=== PATIENT | female | born 1995 | race Caucasian/White ===

== ENCOUNTER → 2017-08-23 12:53 | Outpatient (CLI) | payer MEDICAID, SELFPAY ==
--- NOTE | 2017-08-23 12:55 | MRI_ITS ---
STUDY: MRI LUMBAR SPINE WITH AND WITHOUT CONTRAST REASON FOR EXAM: Female, 21 years old. low back pain. 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 TECHNIQUE: Standardized fat and water weighted pulse sequences were obtained in the sagittal and axial planes. 11ml ml of Gadavist contrast material was administered for the contrast portion of the examination. COMPARISON: X-ray July 09, 2017 FINDINGS: Normal lumbar lordosis. There is no substantial scoliosis. Normal conus medullaris that terminates at the T12-L1 level. There is no spondylolisthesis. There is loss of disc height at L5-S1. There is mild chronic compression deformity of the L3 superior endplate. There is fatty replacement of the L2-L4 vertebral bodies probably representing post radiation therapy. No bone marrow edema or enhancement is demonstrated. There is multilevel facet arthropathy and ligamentum flavum hypertrophy. T12/L1: Sagittal images only were obtained. Normal. L1/2: Normal. L2/3: Normal. L3/4: Normal disc. No central canal stenosis. There is moderate right and mild left neuroforaminal stenosis. L4/5: Normal disc. No central canal stenosis. There is mild right worse than left neural foraminal stenosis. L5/S1: There is a diffuse bulge and a central and left paracentral small protrusion with annular tear. There is no central canal or neuroforaminal stenosis. Normal visualized sacral ala. Normal visualized paraspinous soft tissue structures. MRI/Spine Lumbar W/WO Contrast IMPRESSION: Multilevel degenerative changes, as described above. L3/4: There is moderate right and mild left neuroforaminal stenosis. L4/5: There is mild right worse than left neural foraminal stenosis. L5/S1: There is a diffuse bulge and a central and left paracentral small protrusion with annular tear. There is fatty replacement of the L2-L4 vertebral bodies probably representing post radiation therapy. There is mild chronic compression deformity of the L3 superior endplate. Electronically Signed: Ami Tobin MD at 15:27 EST , Service support ,
== END ==
PROVIDERS: Family Provider Pediatrics; PCP Pediatrics
DX: C41.2 Malignant neoplasm of vertebral column (principal)
CPT/HCPCS: 72158; A9585

== ENCOUNTER 2019-06-09 10:40 | Emergency (ER) | payer MEDICAID, SELFPAY ==
[2019-06-09 10:41] VITALS: BP 103/59; PULSE 90; RESP 18; TEMP 36.8; O2SAT 98; BMI 29.6
--- NOTE | 2019-06-09 10:59 | ED.DCSUM_ITS ---
History of Present Illness Chief Complaint: General Illness Informant: Patient Onset: Yesterday Narrative: Patient reports increasing sweating and chills with mild muscle aches and slight headache this morning. was not feeling well yesterday. No sick contacts. No ear or throat pain. No cough. No urinary symptoms. No vomiting or diarrhea. Normal bowel movement this morning when symptoms started. No history of diabetes or asthma. 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 She finished her treatment 2 years ago the age of 21 currently in remission per patient. She was treated at [facility]. has not followed up since then. Denies any fever. has generalized weakness. Prior similar symptoms: No Past Medical History - Allergies and Home Meds Allergies/Adverse Reactions: Allergies No Known Allergies Allergy (Verified 06/09/19 10:41) Primary Care Physician: NOT,DEFINED [NON-STAFF] - Review of Systems General: Reports: Chills, Sweats. Denies: Fever Eyes: Denies: Visual changes - bilaterally, Diplopia ENT: Denies: Rhinorrhea, Sore throat Cardiovascular: Denies: Chest pain, Palpitations Respiratory: Denies: Dyspnea, Cough, Dyspnea on exertion Gastrointestinal: Denies: Abdominal pain, Nausea, Vomiting, Diarrhea, Melena, Hematochezia Genitourinary: Denies: Dysuria, Hematuria, Frequency Musculoskeletal: Denies: Back pain, Extremity Pain Skin: Denies: Rash, Wounds Neurological: Reports: Weakness. Denies: Headache, Numbness Physical Exam Vital Signs/Narrative: Vital Signs Temp Pulse Resp BP Pulse Ox 06/09/19 10:41 98.3 F 90 18 103/59 L 98 Inital Vital Signs reviewed: Yes General: Well nourished, Well developed, No Acute Distress Head: Normocephalic, Atraumatic Eyes: Perrl, EOMI ENT: Moist mucous membranes, No rhinorrhea, TM's clear, - - No posterior pharyngeal erythema. Neck: Supple, Nontender Cardiovascular: Regular rate, Regular rhythm, No murmurs Respiratory: No distress, CTA bilaterally, Chest nontender Abdomen: Soft, Nontender, Nondistended, Normal bowel sounds Back: Nontender, Normal Inspection Extremities: Nontender, No edema Skin: Normal color, No rash Neurological: Alert, Oriented x3, Cranial nerves II-XII grossly intact, Normal Strength, Normal Sensation Psychological: Normal affect, Normal Mood Diagnostic/Tx/Re-eval Abnormal Lab Results 06/09/19 06/09/19 06/09/19 11:50 11:50 14:40 WBC 17.6 H RBC 4.43 Hgb 14.3 Hct 43.9 MCV 99.1 H MCH 32.3 H MCHC 32.6 RDW Std Deviation 47.7 H RDW Coeff of Bulmaro 13.0 Plt Count 182 MPV 9.8 Immature Gran % (Auto) 0.500 Neut % (Auto) 88.2 H Lymph % (Auto) 4.4 L Caldwell % (Auto) 6.7 Eos % (Auto) 0.1 Baso % (Auto) 0.1 Absolute Neuts (auto) 15.5 H Absolute Lymphs (auto) 0.77 L Nucleated RBC % 0 Sodium 137 Potassium 3.6 Chloride 102 Carbon Dioxide 29.0 Anion Gap 6 BUN 8 Creatinine 1.33 H Estim Creat Clear Calc 64.52 Est GFR (MDRD) Af Amer 64 Est GFR (MDRD) Non-Af 53 L BUN/Creatinine Ratio 6.0 L Glucose 100 Calcium 9.0 Urine Color Yellow Urine Clarity Sl. Cloudy Urine pH 7.0 Ur Specific [place] 1.005 Urine Protein 30 H Urine Glucose (UA) 50 H Urine Ketones Negative Urine Occult Blood 250 H Urine Nitrite Negative Urine Bilirubin Negative Urine Urobilinogen Normal Ur Leukocyte Esterase 100 H Urine RBC 25-50 SEEN Urine WBC 10-25 SEEN Ur Squamous Epith Cells 0-5 SEEN Urine Bacteria 0 SEEN Urine Mucus 0 SEEN - Medical Decision Making Patient nontoxic vital signs stable and afebrile in the ED. With patient's frequent history of sarcoma not followed up in 2 years, work-up initiated. Influenza negative labs noted white count of 17. She had no cough however in the department she reports she urinated have blood in her urine. She has no back pain or abdominal pain. Given Tylenol and Motrin for headaches which improved. Urine obtained noted hematuria along with leukocytes and WBCs. With her white count will start antibiotics. She started on Macrobid. She will monitor symptoms, signs and symptoms discussed to return. otherwise patient will follow-up as an outpatient. All questions were answered. ED Disposition - Plan for ED Patient: Disposition: Home or Assisted Living Diagnosis: UTI (urinary tract infection) Instructions: Urinary Tract Infections in Women Prescriptions: Nitrofurantoin Macrocrystals [Macrobid] 100 mg PO Q12 #14 capsule Referrals: NOT,ARCENIO [NON-STAFF] - Loni Hoyos [NON-STAFF] - 5-7 Days Additional Instructions: You should contact your oncologist for your regular follow-ups with your history. Take antibiotic as prescribed.
[2019-06-09] MEDS: Acetaminophen 500 MG Tablet 1000 MG PO (12:11)
[2019-06-09 12:25] LABS: Anion Gap 6 (5-15); BUN 8 mg/dL (7-18); Chloride 102 mmol/L (98-107); Creatinine, Serum 1.33 mg/dL (0.55-1.02); EST Glomerular Filtration Rate 53 mL/min (>60); Est Glom Filt Rate - Afr Amer 64 mL/min (>60); Estimated Creatinine Clearance 64.52 ml/min; Glucose 100 mg/dL (74-106); Potassium 3.6 mmol/L (3.5-5.1); Sodium Level 137 mmol/L (136-145)
[2019-06-09 12:32] LABS: Absolute Lymphocyte Count 0.77 X10^3/uL (0.83-4.51); Absolute Neutrophil Count 15.5 X10^3/uL (2.0-7.7); Basophil# 0.02 X10^3/uL; Basophil% 0.1 % (0-1); Eosinophil# 0.02 X10^3/uL; Eosinophils% 0.1 % (0-5); Hematocrit 43.9 % (37-47); Hemoglobin 14.3 g/dL (12.0-15.0); Lymphocyte # 0.77 X10^3/ul (4.0); Lymphocyte % 4.4 % (19-41); Mean Corp Hgb Conc 32.6 g/dL (32-36); Mean Corpuscular Hgb 32.3 pg (27.0-32.0); Mean Corpuscular Volume 99.1 fL (81-99); Mean Platelet Vol. 9.8 fl (6.2-12.0); Monocyte# 1.17 X10^3/uL; Monocyte% 6.7 % (0-10); NRBC Flagged by Analyzer 0 % (0-5); Neutrophil % 88.2 % (47-70); Platelet Count 182 K/mm3 (150-450); RBC Distribution Width SD 47.7 fl (35.1-43.9); Red Blood Count 4.43 M/mm3 (4.2-5.4); White Blood Count 17.6 K/mm3 (4.4-11.0)
[2019-06-09] MEDS: Ibuprofen 600 MG Tablet PO (14:15)
--- NOTE | 2019-06-09 14:15 | ED.RN ---
PT AWARE DR WOULD LIKE A URINE SAMPLE. EDUCATED ON CONTAMINIATION AND VERIFYING RESULTS. REVIEWED CLEAN CATCH SPECIMEN AND PROPER TECHNIQUE. PT REPORTS UNABLE TO GO AT THIS TIME. OFFERED BEVERAGE, SPRITE GIVEN.
[2019-06-09 14:47] LABS: Bacteria 0 SEEN /hpf (None Seen); Mucous, Urine 0 SEEN /hpf (<or=2+)
[2019-06-09 15:04] VITALS: BP 138/74; PULSE 90; RESP 16; O2SAT 99
[2019-06-09 15:07] LABS: Color, Urine Yellow (Yellow); Glucose, Dipstick 50 mg/dl (Normal); Ketone-Dipstick Negative (Negative); Leukocyte Esterase-Dipstick 100 /ul (Negative); Nitrite-Dipstick Negative (Negative); Occult Blood-Urine 250 /ul (Negative); Protein-Dipstick 30 mg/dl (Negative); Specific Gravity, Urine 1.005 (1.002-1.030); Urine Bilirubin Dipstick Negative (Negative); Urine Clarity Sl. Cloudy (Clear); Urine Urobilinogen Normal (Normal)
[2019-06-09 15:14] LABS: Red Blood Cells-Urine 25-50 SEEN /hpf (0-5); Squamous Epithelial Cells - UA 0-5 SEEN /hpf (5-10); White Blood Cells 10-25 SEEN /hpf (0-5)
[2019-06-09] MEDS: Nitrofurantoin Macrocrystals 100 MG Capsule PO (15:42)
== END 2019-06-09 15:48 | disposition home or self-care (01) ==
PROVIDERS: Emergency Provider Emergency Medicine
DX: N39.0 Urinary tract infection, site not specified (principal)
CPT/HCPCS: 80048; 81001; 85025; 87086; 87088; 87804; 99284; A4216

== ENCOUNTER 2019-08-11 20:45 | Emergency (ER) | payer MEDICAID, SELFPAY ==
[2019-08-11 20:46] VITALS: BP 133/71; PULSE 92; RESP 18; TEMP 36.9; O2SAT 100; BMI 30.1
[2019-08-11 21:23] VITALS: BP 109/60; PULSE 93; RESP 15; O2SAT 100
[2019-08-11 21:58] LABS: Absolute Lymphocyte Count 2.23 X10^3/uL (0.83-4.51); Absolute Neutrophil Count 5.2 X10^3/uL (2.0-7.7); Basophil# 0.02 X10^3/uL; Basophil% 0.2 % (0-1); Eosinophil# 0.08 X10^3/uL; Hematocrit 42.6 % (37-47); Lymphocyte # 2.23 X10^3/ul (4.0); Lymphocyte % 27.1 % (19-41); Mean Corp Hgb Conc 32.9 g/dL (32-36); Mean Corpuscular Hgb 32.3 pg (27.0-32.0); Mean Corpuscular Volume 98.4 fL (81-99); Monocyte# 0.71 X10^3/uL; Monocyte% 8.6 % (0-10); NRBC Flagged by Analyzer 0 % (0-5); Neutrophil # 5.16 X10^3/uL (2.7-7.7); Neutrophil % 62.9 % (47-70); Platelet Count 217 K/mm3 (150-450); RBC Distribution Width CV 12.8 % (11.6-14.6); RBC Distribution Width SD 46.5 fl (35.1-43.9); Red Blood Count 4.33 M/mm3 (4.2-5.4); White Blood Count 8.2 K/mm3 (4.4-11.0)
[2019-08-11] MEDS: Ketorolac 30 MG/ML Syringe IV (22:02)
[2019-08-11] MEDS: 0.9% Normal Saline 1,000 ML 150 ML IV (22:03)
[2019-08-11 22:08] LABS: Internal QC Validated? YES +Cl - CLEAR BKGD; Pregnancy, Serum, hCG Quali. NEGATIVE Negative
[2019-08-11 22:11] LABS: Anion Gap 3 (5-15); BUN 20 mg/dL (7-18); BUN/Creat Ratio 14.3 RATIO (10-20); Calcium,Total 9.1 mg/dL (8.5-10.1); Chloride 107 mmol/L (98-107); EST Glomerular Filtration Rate 50 mL/min (>60); Est Glom Filt Rate - Afr Amer 60 mL/min (>60); Estimated Creatinine Clearance 61.29 ml/min; Glucose 81 mg/dL (74-106); Potassium 3.7 mmol/L (3.5-5.1); Sodium Level 140 mmol/L (136-145)
[2019-08-11 22:11] LABS: Bacteria 0 SEEN /hpf (None Seen); Mucous, Urine 0 SEEN /hpf (<or=2+)
[2019-08-11 22:12] LABS: Color, Urine Yellow (Yellow); Glucose, Dipstick 50 mg/dl (Normal); Ketone-Dipstick Negative (Negative); Leukocyte Esterase-Dipstick 500 /ul (Negative); Nitrite-Dipstick Negative (Negative); Occult Blood-Urine 25 /ul (Negative); Protein-Dipstick 30 mg/dl (Negative); Urine Bilirubin Dipstick Negative (Negative); Urine Clarity Sl. Cloudy (Clear); Urine Urobilinogen Normal (Normal)
[2019-08-11 22:22] LABS: Red Blood Cells-Urine 0-5 SEEN /hpf (0-5); Squamous Epithelial Cells - UA 0-5 SEEN /hpf (5-10); White Blood Cells 10-25 SEEN /hpf (0-5)
--- NOTE | 2019-08-11 22:35 | RAD_ITS ---
STUDY: X-RAY - LUMBAR SPINE REASON FOR EXAM: Female, 23 years old. Neck pain and weakness for 1 month. History of Muse''s sarcoma of the spine. TECHNIQUE: 3 view(s) of the lumbar spine were obtained. COMPARISON: MRI of the lumbar spine, August 23, 2017. Lumbar spine, July 09, 2017 FINDINGS: There is reversal of the normal lumbar lordosis. There is no substantial scoliosis. There is a normal alignment of the vertebrae. Minimal depression of the superior endplate of L3 which is a chronic finding. There is no disc space narrowing and endplate spondylosis There is no evidence of acute fracture or loss of vertebral axial height. The soft tissue structures are unremarkable. RAD/Lumbar Spine 2 or 3 Views IMPRESSION: No acute abnormality or interval change. Electronically Signed: Matt Nava DO at 23:00 EST Tel [phone], Service support ,
--- NOTE | 2019-08-11 23:29 | ED.DCSUM_ITS ---
- ER Visit Summary Date of Service: 08/11/19 Chief Complaint: [Back pain and fatigue] History of Present Illness: The patient is a 23 F [presents to the emergency department with back pain for over a month. Patient describes generalized fatigue and lack of energy. She denies any injury to her back. She is had no fevers. She denies urinary symptoms. Patient tells me she has had a history of Muse sarcoma that she was treated for from - with chemo and radiation. Patient used to see a oncologist at [facility] but has not gone back or had any follow-ups over the last 3 years. Patient needs to get x-rays and MRIs to follow her disease. Patient was told that she was in remission. She denies any weight loss. She denies any paresthesias or weakness in extremities.] Physical Examination: [HEENT-PERRLA, EOMI. Cranial nerves II through XII grossly intact. TMs clear. Mucous membranes moist. No adenopathy. Cardiovascular-regular rate and rhythm without murmur or ectopy Lungs-clear to auscultation, chest wall stable without crepitus or subcu e mphysema Abdomen-normoactive bowel sounds, soft, nontender, no rebound or rigidity, no peritoneal signs. Back exam-patient has some diffuse tenderness over lumbar spine in the midline. There is no erythema or warmth. No ecchymosis or bruising. Patient has negative straight leg raises. Deep tendon reflexes are plus 2 out of 4 bilaterally at the patella and Achilles. Patient has normal 5 extension. Patient has normal sensation to light touch. Extremities-intact ?4, normal range of motion, normal pulses, atraumatic] Test Results: [CBC with differential obtained was normal. Chemistries unremarkable. Urinalysis was positive for 500 leukocyte esterase and 10-25 PVCs. hCG was negative.] X-rays of the lumbar spine obtained were read as normal. Emergency Department Course and Treatment: [Urine culture was sent. Patient was started on Bactrim DS 1 tablet p.o.] Treatment Plan: [Case was discussed with patient and her mother. Patient is currently in the process of establishing with an oncologist here at [place]. Patient understands I cannot obtain an MRI of her back this evening. She may need further work-up if her pain persists. Patient will be given a prescription for Naprosyn, Flexeril, [place], and Bactrim] Disposition: [Discharged home in stable condition. Patient will be given referral to primary care physician emergency response technician for no doc.] Impression: [Back pain UTI] This note was generated with [employer] dictation software. It may contain incorrect words, spelling, and punctuation that were not noted in review of the chart prior to signing ED Disposition - Plan for ED Patient: Referrals: Care Physician,No Primary [Primary Care Provider] -
--- NOTE | 2019-08-11 23:33 | DCINST.ED_ITS ---
ED Disposition - Plan for ED Patient: Instructions: BACK AND NECK PAIN, General, Understanding Urinary Tract Infections (UTIs), WEAKNESS, Unk Cause Prescriptions: Smz/Tmp Ds [Bactrim Ds] 1 tab PO BID #6 tab Prescription Printed cycloBENZAPRine HCl [Flexeril] 10 mg PO TID PRN #20 tab PRN Reason: Muscle Spasm Prescription Printed Naproxen [Naprosyn] 500 mg PO BID PRN #20 tab Prescription Printed Hydrocodone Bitart/Apap 5-325 [[place] 5MG-325MG] 1 tab PO Q4H PRN PRN 2 Days #10 tab PRN Reason: Pain Prescription Printed Referrals: Care Physician,No Primary [Primary Care Provider] - Hannah Woodard MD [STAFF PHYSICIAN] - 3-5 Days
[2019-08-11] MEDS: Smz/Tmp Ds Tablet 1 TABLET PO (23:49)
[2019-08-11 23:51] VITALS: PULSE 89; RESP 16; O2SAT 98
== END 2019-08-11 23:52 | disposition home or self-care (01) ==
LOC: ED 21:48
PROVIDERS: Emergency Provider Emergency Medicine
DX: N39.0 Urinary tract infection, site not specified (principal); M54.5 Low back pain; Z85.830 Personal history of malignant neoplasm of bone
CPT/HCPCS: 72100; 80048; 81001; 84703; 85025; 96361; 96374; 99283; J7030; A4216

== ENCOUNTER → 2019-09-14 | Outpatient (CLI) | payer MEDICAID, SELFPAY ==
[2019-09-02 13:08] VITALS: BMI 22.7
--- NOTE | 2019-09-14 12:03 | CT_ITS ---
STUDY: CT CHEST WITH CONTRAST REASON FOR EXAM: Female, 23 years old. Mid back and chest pain RADIATION DOSAGE (If Supplied By Facility): CTDIvol = ( 11.29 ) mGy, DLP = ( 397.38 ) mGycm TECHNIQUE: Transaxial imaging was performed following intravenous administration of IV 100mL Isovue-300. Multiplanar coronal and sagittal images were reformatted. Individualized dose optimization techniques were used for this CT. COMPARISON: None. FINDINGS: The lungs are normal. There is no demonstrated pleural abnormality. Normal heart and pericardium. Normal mediastinum. Normal hilar regions. Normal enhanced pulmonary arteries. Normal aorta arch and descending thoracic aorta. Normal osseous structures. There is no demonstrated abnormality of the visualized upper abdomen. CT/Chest WITH Contrast IMPRESSION: Normal enhanced CT Chest examination. Electronically Signed: Jim Velasquez MD at 13:02 EST , Service support ,
--- NOTE | 2019-09-14 12:03 | MRI_ITS ---
STUDY: MRI LUMBAR SPINE WITH AND WITHOUT CONTRAST REASON FOR EXAM: Female, 23 years old. The patient presents with a history of Muse''s sarcoma of the L3 vertebra and a history of chemoradiation therapy complaining of back pain. TECHNIQUE: Standardized fat and water weighted pulse sequences were obtained in the sagittal and axial planes. IV Dotarem 17ml contrast material was administered for the contrast portion of the examination COMPARISON: MRI LUMBAR SPINE-August 23, 2017 FINDINGS: Vertebrae, Alignment and Curvature Vertebrae: There is re-demonstration of fatty marrow replacement of the L2, L3 and L4 vertebra most compatible with postradiation changes, unchanged as compared to the prior examination of August 23, 2017. There is mild compression deformity the superior endplate of the L3 vertebra with a Schmorl''s node deformity, unchanged compared the prior examination. Alignment: Normal. Curvature: Normal lordosis. No scoliosis. Thoracic Cord (visualized distal) / Conus Medullaris Normal. Terminates at the at the mid L1 vertebral body level. Disc Space Levels N.B.: Normal level statement indicates: Normal endplates; disc height, signal and morphology; facet joints; central canal, lateral recesses, and intervertebral neuroformina. T12-L1: Normal. (Imaged only in the sagittal plane). L1-L2: Normal. L2-L3: Normal. L3-L4: Normal disc hydration and height. There is mild right-sided osseous foraminal stenosis secondary to facet arthrosis with marginal impingement upon the exiting right L3 nerve root, unchanged as compared to the prior examination. Normal central canal. The left L3-4 intervertebral neural foramina remains patent. L4-L5: Normal central canal. The intervertebral neural foramina remain patent without neural impingement. L5-S1: There is disc desiccation, mild loss of the disc height with a posterior central to left central disc herniation of protrusion type (sagittal T2 series 2, 7; axial T2 series 5, image 3), measuring approximately 4 x 13 mm with an associated annular tear. There is ventral leftward ventral thecal sac flattening. There is no neural impingement. There is mild bilateral facet arthroses. The intervertebral neural foramina remain patent. Sacral Alae: Normal. There is no enhancing abnormality. Retroperitoneum and Paraspinal Structures Kidneys: Non-visualized. Aorta: Normal. Inferior Vena Cava: Normal. Lymph Nodes: None visualized. Muscles (Paraspinal): Normal. MRI/Spine Lumbar W/WO Contrast IMPRESSION: 1. Postradiation changes of fatty marrow replacement of the L2, L3, and L4 vertebra. 2. Remote superior endplate compression deformity with a prominent Schmorl''s node deformity the L3 vertebra. 3. L3-4 moderate right-sided osseous foraminal stenosis with marginal impingement upon the exiting right L3 nerve root. 4. L5-S1 posterior central to left central disc protrusion with an annular tear, producing minimal ventral thecal sac flattening with no neural impingement, with interval stability as compared to the prior examination of August 23, 2017. 5. No demonstrated enhancing abnormality. Electronically Signed: Baldo Mcmahon DO at 15:53 EST Tel , Service support ,
== END | disposition home or self-care (01) ==
LOC: MRI 12:03
PROVIDERS: Referring Provider Internal Medicine Hematology & Oncology; Visit Provider Internal Medicine Hematology & Oncology
DX: C41.9 Malignant neoplasm of bone and articular cartilage, unspecified (principal)
CPT/HCPCS: 71260; 72158; A9575; Q9967; A4216

== ENCOUNTER → 2020-09-05 16:18 | Outpatient (CLI) | payer MEDICAID, SELFPAY ==
[2019-09-14 14:49] VITALS: BMI 22.7
--- NOTE | 2020-09-05 16:19 | MRI_ITS ---
STUDY: MRI LUMBAR SPINE WITH AND WITHOUT CONTRAST REASON FOR EXAM: Female, 24 years old. annual f/u ewings sarcoma, no new complaints TECHNIQUE: Standardized fat and water weighted pulse sequences were obtained in the sagittal and axial planes. iv dotarem 15cc was administered for the contrast portion of the examination. COMPARISON: 09/14/2019 FINDINGS: No evidence for acute fracture. Fatty marrow replacement of the L2-L4 vertebral bodies T12-L1: Normal endplates. Normal disc height, hydration and morphology. Normal bilateral facet joints. Normal central canal and bilateral lateral recesses. Normal bilateral intervertebral neural foramina. Normal lumbar lordosis. There is no substantial scoliosis. Normal conus medullaris that terminates at L1 L1-2: Normal endplates. Normal disc height, hydration and morphology. Normal bilateral facet joints. Normal central canal and bilateral lateral recesses. Normal bilateral intervertebral neural foramina. L2-3: Normal endplates. Normal disc height, hydration and morphology. Normal bilateral facet joints. Normal central canal and bilateral lateral recesses. Normal bilateral intervertebral neural foramina. L3-4: Normal endplates. Normal disc height, hydration and morphology. Normal bilateral facet joints. Normal central canal and bilateral lateral recesses. Normal bilateral intervertebral neural foramina. L4-5: Normal endplates. Normal disc height, hydration and minimal annular bulge.. Mild facet arthropathy.. Normal central canal and bilateral lateral recesses. Normal bilateral intervertebral neural foramina. L5-S1: Normal endplates. Normal disc height, desiccation and small broad-based left paracentral/posterolateral annular tear and disc protrusion. Mild facet arthropathy.. Normal central canal and bilateral lateral recesses. Normal bilateral intervertebral neural foramina. Normal visualized sacral ala. Normal visualized paraspinous soft tissue structures. No enhancing lesions are seen following contrast demonstration No significant change since prior exam. MRI/Spine Lumbar W/WO Contrast IMPRESSION: Minimal annular bulge at L4-5 without spinal stenosis. Small broad-based left paracentral/posterolateral annular tear and disc protrusion at L5-S1 with mild facet arthropathy but no significant spinal stenosis No enhancing lesions following contrast demonstration Electronically Signed: Skyler Rolle MD at 21:47 EST , Service support ,
--- NOTE | 2020-09-05 17:49 | CT_ITS ---
STUDY: CT CHEST WITH CONTRAST REASON FOR EXAM: Female, 24 years old. 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 Individualized dose optimization techniques were used for this CT. COMPARISON: 09/14/2019 FINDINGS: There is no change in a 4 mm noncalcified nodule in the anterior superior segment left lower lobe lungs on image 51 consistent with a noncalcified granuloma. This requires no further follow-up. No new noncalcified nodules or masses. There is no demonstrated pleural abnormality. Normal heart and pericardium. Normal mediastinum. Normal hilar regions. Normal enhanced pulmonary arteries. Normal aorta arch and descending thoracic aorta. Normal osseous structures. There is no demonstrated abnormality of the visualized upper abdomen. CT/Chest WITH Contrast IMPRESSION: No CT evidence metastatic disease. Electronically Signed: Vito Isaac MD at 6:20 EST Tel , Service support ,
== END ==
PROVIDERS: Referring Provider Internal Medicine Hematology & Oncology; Visit Provider Internal Medicine Hematology & Oncology
DX: C41.9 Malignant neoplasm of bone and articular cartilage, unspecified (principal)
CPT/HCPCS: 71260; 72158; A9575; Q9967; A4216

== ENCOUNTER 2021-01-08 23:42 | Emergency (ER) | payer MEDICAID, SELFPAY ==
[2019-09-14 14:49] VITALS: BMI 22.7
[2021-01-08 23:43] VITALS: BP 104/66; PULSE 130; RESP 18; TEMP 36.7; O2SAT 100; BMI 25.7
--- NOTE | 2021-01-08 23:50 | EKG12_ITS ---
Test Reason : DYSRYTHMIA Blood Pressure : / mmHG Vent. Rate : 104 BPM Atrial Rate : 104 BPM P-R Int : 150 ms QRS Dur : 084 ms QT Int : 338 ms P-R-T Axes : 078 092 063 degrees QTc Int : 444 ms Sinus tachycardia Rightward axis Borderline ECG Confirmed by MAANSA SAMANIEGO, RON ([id number]), associate editor ROB MCCARTHY ([id number]) on 01/09/2021 11:24:15 AM Referred By: RADHA Confirmed By:RON GOEL MD
--- NOTE | 2021-01-08 23:51 | EDS_ITS ---
HPI History of Present Illness Chief Complaint: Syncope Informant: patient Onset/Context/Timing Onset: Today Context: Sudden Onset Current Severity: Gone Maximum Severity: Moderate Narrative Narrative: Patient is a 25-year-old female medical history significant for Muse sarcoma that was treated in who is now in remission, who presents to the emergency department after syncopal episode. Patient states she is been feeling lightheaded for the past 2 weeks. She states last week, was getting off of the toilet, she thinks that she had a syncopal episode. She states the same thing happened again tonight. She states she felt mildly nauseated and lightheaded with change in position and then passed out. She states that she has had some diffuse body tingling. Grandmother who is with her states that she is also had about a 90 pound weight loss in the past year secondary to depression. [facility] Medical History (Updated 01/09/21 @ 00:31 by Lara Lepe RN) Depression Muse sarcoma Mental deficiency Weight loss, non-intentional Home Medications potassium chloride 20 meq PO BID #10 tab 01/09/21 [Rx Last Taken Unknown] Allergy/AdvReac Type Severity Reaction Status Date / Time acetaminophen [From Vicodin] AdvReac Nausea Verified 01/08/21 23:46 hydrocodone [From Vicodin] AdvReac Nausea Verified 01/08/21 23:46 Family History Aunt Breast cancer Cancer Mother Ovarian cancer Grandmother Ovarian cancer Surgical History History of hip surgery Social History Smoking Status: Never smoker ROS ROS ED Constitutional Constitutional ED: Reports weight loss; Denies chills or fever(s) Eyes Eyes: Denies blurry vision or change in vision ENT ENT ED: Denies ear pain or sore throat Cardiovascular Cardiovascular: Reports racing heartbeat; Denies chest pain or palpitations Respiratory/Chest Respiratory/Chest: Denies cough, dyspnea or dyspnea on exertion Gastrointestinal Gastrointestinal: Reports nausea; Denies abdominal pain or vomiting Genitourinary Genitourinary ED: Denies dysuria or urinary frequency Musculoskeletal Musculoskeletal: Denies arthralgias or myalgias Integumentary Denies rash Neurologic Neurologic: Denies headache(s) or paresthesias Psychiatric Psychiatric: Denies anxiety or depression Endocrine Endocrinology: Denies polydipsia or polyuria Allergic/Immunologic Allergic/Immunologic ED: Denies urticaria EXAM Physical Exam Const Vital Signs: 01/08/21 23:43 Temperature 98.1 F Temperature Source Temporal Pulse Rate 130 H Respiratory Rate 18 Blood Pressure 104/66 Blood Pressure Mean 78 Pulse Ox 100 Oxygen Delivery Method Room Air Positive well nourished and well developed General Appearance ED: well developed HEENT Reports normocephalic, head/scalp atraumatic and moist mucous membranes Eyes PERRL and EOMs intact bilaterally Neck no lymphadenopathy and supple General: Negative for tenderness Chest Wall inspection of chest normal Resp normal respiratory effort and clear to auscultation bilaterally Cardio regular rate, regular rhythm and no murmurs GI normal to inspection, nondistended, normoactive bowel sounds Palpation: Negative for tender, guarding or rebound tenderness present Back/Spine no CVA tenderness Cervical Spine: Negative for cervical spine tenderness Thoracic Spine / Upper Back: Negative for thoracic spinal tenderness Extremity normal to inspection General Extremety ED: Negative for tenderness Neuro oriented x3 and CN's II-XII intact bilaterally Neuro Narrative: No focal deficits appreciated. Sensorium / Orientation: alert Psych mental status grossly normal Skin no rashes or lesions noted, no wounds and skin turgor normal MDM MDM MDM Narrative Medical decision making narrative: The patient presents after syncopal episode. Clinically, she does look mildly dry. She is also tachycardic. EKG was obtained. EKG demonstrates sinus rhythm, tachycardic rate of 104. There was normal intervals. There was no prolonged QT or WPW. There was no evidence of right heart strain. Patient was given IV fluids. Labs were obtained. She is not significantly anemic. Her platelets are normal. She is found to be mildly hypokalemic with evidence of dehydration and a creatinine of 1.25. With hydration, she is feeling improved. Chest x-ray shows no enlarged cardiac silhouette or evidence of volume overload. It was reviewed by both myself and the radiologist. At this point, I do for the patient is safe for outpatient follow-up. She was counseled on increasing hydration. With 2 syncopal episodes, I do feel that she would benefit from cardiology so she will be given referral. The patient will be discharged home. Impression 1. Dehydration 2. Orthostatic syncope Lab Data Attestation: I reviewed the patient's lab results. Labs: Laboratory Results - last 24 hr 01/08/21 01/08/21 00:10 00:10 WBC 7.5 RBC 4.37 Hgb 13.7 Hct 41.2 MCV 94.3 MCH 31.4 MCHC 33.3 RDW Std Deviation 44.6 H RDW Coeff of Bulmaro 12.9 Plt Count 253 MPV 9.3 Immature Gran % (Auto) 0.300 Neut % (Auto) 61.5 Lymph % (Auto) 27.6 [place] % (Auto) 9.0 Eos % (Auto) 1.3 Baso % (Auto) 0.3 Absolute Neuts (auto) 4.6 Absolute Lymphs (auto) 2.06 Nucleated RBC % 0 Sodium 138 Potassium 3.3 L Chloride 104 Carbon Dioxide 26.0 Anion Gap 8 BUN 12 Creatinine 1.25 H Estim Creat Clear Calc 67.49 Est GFR (MDRD) Af Amer 68 Est GFR (MDRD) Non-Af 56 L BUN/Creatinine Ratio 9.6 L Glucose 105 Calcium 8.8 Total Bilirubin 0.70 AST 10 L ALT 15 Alkaline Phosphatase 65 Total Protein 7.8 Albumin 3.9 Globulin 3.9 Albumin/Globulin Ratio 1.0 Radiography Chest X-Ray - ED: 1 View, Read by ED Physician, Normal, Heart, Lungs, Mediastinum, Bony Structures and No Acute Disease Discharge Plan Triage Chief Complaint: Syncope ED Provider: Anthony Santillan Dx/Rx/DC Orders Instructions: ED Fainting, Uncertain Cause Prescriptions: New potassium chloride 20 mEq tablet extended release 20 meq PO BID Qty: 10 RF: 0 Primary Care Provider: Care Physician,No Primary Referrals: Chaitanya Wang MD [STAFF PHYSICIAN] - 1 Week Care Physician,No Primary [Primary Care Provider] -
[2021-01-09 00:18] LABS: Absolute Lymphocyte Count 2.06 X10^3/uL (0.83-4.51); Absolute Neutrophil Count 4.6 X10^3/uL (2.0-7.7); Basophil# 0.02 X10^3/uL; Basophil% 0.3 % (0-1); Eosinophils% 1.3 % (0-5); Hematocrit 41.2 % (37-47); Hemoglobin 13.7 g/dL (12.0-15.0); Lymphocyte # 2.06 X10^3/ul (0.83-4.51); Lymphocyte % 27.6 % (19-41); Mean Corp Hgb Conc 33.3 g/dL (32-36); Mean Corpuscular Hgb 31.4 pg (27.0-32.0); Mean Corpuscular Volume 94.3 fL (81-99); Mean Platelet Vol. 9.3 fl (6.2-12.0); Monocyte# 0.67 X10^3/uL; NRBC Flagged by Analyzer 0 % (0-5); Neutrophil % 61.5 % (47-70); Platelet Count 253 K/mm3 (150-450); RBC Distribution Width CV 12.9 % (11.6-14.6); RBC Distribution Width SD 44.6 fl (35.1-43.9); Red Blood Count 4.37 M/mm3 (4.2-5.4); White Blood Count 7.5 K/mm3 (4.4-11.0)
--- NOTE | 2021-01-09 00:20 | RAD_ITS ---
STUDY: X-RAY CHEST REASON FOR EXAM: Female, 25 years old. sob TECHNIQUE: Single AP portable view of the chest. COMPARISON: None. FINDINGS: The lungs are clear and expanded. There is no demonstrated pleural abnormality. Normal size heart. Normal mediastinum and lazaro. Normal visualized pulmonary arteries. Normal visualized aortic arch and descending thoracic aorta. Normal visualized thoracic spine. Normal visualized ribs, clavicles, and shoulders. There is no demonstrated abnormality of the visualized soft tissue structures of the upper abdomen. RAD/Chest 1 View (Portable) IMPRESSION: Normal x-ray examination of the chest. Electronically Signed: Katheryn Nowak MD at 1:01 EDT , Service support ,
[2021-01-09 00:33] LABS: AST(SGOT) 10 U/L (15-37); Alanine Aminotransfer ALT/SGPT 15 U/L (13-56); Albumin, Serum 3.9 g/dL (3.2-5.0); Alkaline Phosphatase 65 U/L (45-117); Anion Gap 8 (5-15); BUN 12 mg/dL (7-18); BUN/Creat Ratio 9.6 RATIO (10-20); Calcium,Total 8.8 mg/dL (8.5-10.1); Chloride 104 mmol/L (98-107); Creatinine, Serum 1.25 mg/dL (0.55-1.02); EST Glomerular Filtration Rate 56 mL/min (>60); Est Glom Filt Rate - Afr Amer 68 mL/min (>60); Estimated Creatinine Clearance 67.49 ml/min; Globulin 3.9 g/dL (2.2-4.2); Glucose 105 mg/dL (74-106); Potassium 3.3 mmol/L (3.5-5.1); Protein, Total 7.8 g/dL (6.4-8.2); Sodium Level 138 mmol/L (136-145)
[2021-01-09] MEDS: 0.9% Normal Saline 1,000 ML 1000 ML IV (00:34)
--- NOTE | 2021-01-09 00:36 | ED.RN ---
aunt left and states the patien shalondas been cancer free x 7.5 years and suffers from depression. She says the patient lives at home and is back and forth between her mom and the aunt. Patient is reportedly on disability for mental retardation, per the aunt and states the patient wont admit that. Aunt says she is on the SSI but not sure what name or scale and the patient states she does not take anything and only recently finished atb following a std test. The aunt reports patient has had weight loss of 100 pounds over last 9m os and is allergic to vicodin. She states she also cannot take the tylenol part of it. Aunt Ruba can be contacted for emergency at [phone].
[2021-01-09] MEDS: Potassium Chloride Oral Tablet 20 MEQ 40 MEQ PO (01:08)
[2021-01-09 01:09] VITALS: BP 134/78; PULSE 97; RESP 17; O2SAT 96
== END 2021-01-09 01:20 | disposition home or self-care (01) ==
LOC: ED 01-09 00:44
PROVIDERS: Emergency Provider Emergency Medicine
DX: E86.0 Dehydration (principal); R55 Syncope and collapse; R11.0 Nausea
CPT/HCPCS: 71045; 80053; 85025; 93005; 99284; A4216

== ENCOUNTER → 2021-02-27 08:22 | Outpatient (CLI) | payer MEDICAID, SELFPAY ==
[2021-01-30 15:35] VITALS: BMI 24.0
--- NOTE | 2021-02-27 08:22 | MRI_ITS ---
STUDY: MRI LUMBAR SPINE WITH AND WITHOUT CONTRAST REASON FOR EXAM: Female, 25 years old. H/O TAYLOR SARCOMA, PT REPORTS [place] TECHNIQUE: Standardized fat and water weighted pulse sequences were obtained in the sagittal and axial planes. IV DOTAREM 15CC was administered for the contrast portion of the examination. COMPARISON: 09/05/2020. FINDINGS: Mild chronic loss of height of the L3 vertebra. Marrow signal shows no acute compression. T12-L1: Normal endplates. Normal disc height, hydration and morphology. Normal bilateral facet joints. Normal central canal and bilateral lateral recesses. Normal bilateral intervertebral neural foramina. Normal lumbar lordosis. There is no substantial scoliosis. Normal conus medullaris that terminates at the T12 level. L1-2: Normal endplates. Normal disc height, hydration and morphology. Normal bilateral facet joints. Normal central canal and bilateral lateral recesses. Normal bilateral intervertebral neural foramina. L2-3: Chronic fracture of the superior endplate of L3 versus Schmorl''s node. Normal disc height, hydration and morphology. Normal bilateral facet joints. Normal central canal and bilateral lateral recesses. Normal bilateral intervertebral neural foramina. L3-4: Normal endplates. Normal disc height, hydration and morphology. Normal bilateral facet joints. Normal central canal and bilateral lateral recesses. Normal bilateral intervertebral neural foramina. L4-5: Normal endplates. Mild disc space narrowing. Mild, noncompressive spondylotic bar. Normal bilateral facet joints. Normal central canal and bilateral lateral recesses. Mild right foraminal encroachment due to spurring. L5-S1: Normal endplates. Disc dehydration. Small annular fissure, unchanged. Normal bilateral facet joints. Normal central canal and bilateral lateral recesses. Normal bilateral intervertebral neural foramina. No infiltrative or enhancing lesion. Normal visualized sacral ala. Stones are noted in the gallbladder. MRI/Spine Lumbar W/WO Contrast IMPRESSION: 1. No evidence of mass. No acute findings. 2. Small, stable L5-S1 annular fissure. 3. Cholelithiasis. 4. Chronic L3 fracture or Schmorl''s node. 5. Mild degenerative changes are detailed above. Electronically Signed: Vivien Garg MD at 17:54 EDT Tel , Service support ,
== END ==
PROVIDERS: Referring Provider Internal Medicine Hematology & Oncology; Visit Provider Internal Medicine Hematology & Oncology
DX: C41.9 Malignant neoplasm of bone and articular cartilage, unspecified (principal)
CPT/HCPCS: 72158; A9575

== ENCOUNTER → 2021-06-23 14:49 | Outpatient (CLI) | payer MEDICAID, SELFPAY ==
[2021-06-23 15:31] LABS: Absolute Lymphocyte Count 1.94 X10^3/uL (0.83-4.51); Absolute Neutrophil Count 3.4 X10^3/uL (2.0-7.7); Basophil# 0.02 X10^3/uL; Basophil% 0.3 % (0-1); Eosinophil# 0.17 X10^3/uL; Eosinophils% 2.8 % (0-5); Hematocrit 42.6 % (37-47); Hemoglobin 13.6 g/dL (12.0-15.0); Lymphocyte # 1.94 X10^3/ul (0.83-4.51); Lymphocyte % 32.1 % (19-41); Mean Corp Hgb Conc 31.9 g/dL (32-36); Mean Corpuscular Hgb 30.6 pg (27.0-32.0); Mean Corpuscular Volume 95.9 fL (81-99); Monocyte# 0.51 X10^3/uL; Monocyte% 8.4 % (0-10); NRBC Flagged by Analyzer 0 % (0-5); Neutrophil # 3.38 X10^3/uL (2.7-7.7); Neutrophil % 56.1 % (47-70); Platelet Count 226 K/mm3 (150-450); RBC Distribution Width CV 13.2 % (11.6-14.6); RBC Distribution Width SD 46.7 fl (35.1-43.9); Red Blood Count 4.44 M/mm3 (4.2-5.4)
[2021-06-23 16:25] LABS: Anion Gap 5 (5-15); BUN 9 mg/dL (7-18); BUN/Creat Ratio 7.8 RATIO (10-20); Calcium,Total 9.4 mg/dL (8.5-10.1); Chloride 105 mmol/L (98-107); Creatinine, Serum 1.16 mg/dL (0.55-1.02); EST Glomerular Filtration Rate 61 mL/min (>60); Est Glom Filt Rate - Afr Amer 74 mL/min (>60); Glucose 96 mg/dL (74-106); Magnesium 2.4 mg/dL (1.6-2.6); Potassium 3.5 mmol/L (3.5-5.1); Sodium Level 139 mmol/L (136-145); Thyroid Stim Hormone (TSH) 1.54 uIU/mL (0.358-3.74)
== END ==
PROVIDERS: Referring Provider Internal Medicine Cardiovascular Disease; Visit Provider Internal Medicine Cardiovascular Disease
DX: R55 Syncope and collapse (principal)
CPT/HCPCS: 36415; 80048; 83735; 84443; 85025

== ENCOUNTER 2021-08-11 18:20 | Emergency (ER) | payer MEDICAID, SELFPAY ==
[2021-08-11 18:22] VITALS: BP 102/70; PULSE 107; RESP 16; TEMP 36.6; O2SAT 98; BMI 21.2
--- NOTE | 2021-08-11 18:47 | EDS_ITS ---
HPI History of Present Illness Chief Complaint: Lower Extremity Injury Informant: patient Onset/Context/Timing Onset: Yesterday Context: Gradual Onset Timing: Intermittent Current Severity: Gone Worsened by: Shower Relieved by: Rest Narrative Narrative: Patient presents with discoloration of her toes and feet that has been intermittent over the past couple days. Patient states that when she takes a shower she notices that her feet and toes turn blue/purple. Patient denies any pain. Patient admits to some numbness and tingling in her toes when this happens. Patient denies any weakness. Patient denies any injury. Patient denies any calf pain or swelling. Patient denies any itching. [facility] Medical History Anxiety Depression Muse sarcoma Mental deficiency Suicide attempt (03/2021) Weight loss, non-intentional Home Medications metoprolol succinate 25 mg tablet,extended release 24 hr 25 mg PO DAILY #60 tab 06/23/21 [Rx Last Taken Unknown] fluoxetine 20 mg PO DAILY 08/11/21 [History Last Taken Unknown] trazodone 50 mg PO DAILY 08/11/21 [History Last Taken Unknown] Allergy/AdvReac Type Severity Reaction Status Date / Time acetaminophen [From Vicodin] AdvReac Mild Nausea Verified 08/11/21 18:24 hydrocodone [From Vicodin] AdvReac Mild Nausea Verified 08/11/21 18:24 Family History Aunt Breast cancer Cancer Mother Ovarian cancer Grandmother Ovarian cancer Surgical History History of hip surgery Social History Smoking Status: Current every day smoker tobacco type: cigarettes substance use type: marijuana caffeine: Yes Type: carbonated beverages Number of servings: 5 ROS ROS ED Constitutional Constitutional ED: Denies chills or fever(s) Eyes Eyes: Denies blurry vision or change in vision ENT ENT ED: Denies rhinorrhea or sore throat Cardiovascular Cardiovascular: Denies chest pain or palpitations Respiratory/Chest Respiratory/Chest: Denies cough or dyspnea Gastrointestinal Gastrointestinal: Denies nausea or vomiting Genitourinary Genitourinary ED: Denies dysuria or hematuria Musculoskeletal Musculoskeletal: Reports back pain; Denies neck pain Integumentary Denies abscess or rash Neurologic Neurologic: Denies headache(s) or weakness Allergic/Immunologic Allergic/Immunologic ED: Denies mouth swelling or urticaria EXAM Physical Exam Const Vital Signs: 08/11/21 18:22 Temperature 97.8 F Temperature Source Temporal Pulse Rate 107 H Respiratory Rate 16 Blood Pressure 102/70 Blood Pressure Mean 80 Pulse Ox 98 Oxygen Delivery Method Room Air Positive well nourished and well developed General Appearance ED: well developed HEENT Reports moist mucous membranes Extremity full ROM Extremity Narrative: Pedal pulses are equal bilaterally. Capillary refill is less than 2 seconds in all digits. There is full range of motion. There is no edema or ecchymosis. There is no deformity noted. Strength is 5/5 bilaterally in the lower extremities. There are no sensory deficits. General Extremety ED: Negative for cyanosis or edema General Extremity: Negative for cyanosis or edema Neuro oriented x3, CN's II-XII intact bilaterally, moves all extremities and no sensory deficits noted Sensorium / Orientation: alert Motor Exam: strength 5/5 throughout Psych mental status grossly normal MDM MDM MDM Narrative Medical decision making narrative: Venous duplex of the lower extremities was obtained. There is no evidence of DVT. This was interpreted by the radiologist and reviewed by myself. CBC was within normal limits. Basic metabolic profile was obtained and was essentially within normal limits. Patient was advised of her findings. I do not feel there is any acute vascular occlusion. Patient was advised to follow-up with her primary care physician and accountant helper in 5 to 7 days. Patient understood and was agreeable with the plan. All questions were answered. Lab Data Labs: Laboratory Results - last 24 hr 08/11/21 08/11/21 19:00 19:00 WBC 5.9 RBC 4.54 Hgb 14.2 Hct 42.2 MCV 93.0 MCH 31.3 MCHC 33.6 RDW Std Deviation 43.3 RDW Coeff of Bulmaro 12.6 Plt Count 240 MPV 9.2 Immature Gran % (Auto) 0.200 Neut % (Auto) 56.1 Lymph % (Auto) 34.3 [place] % (Auto) 8.4 Eos % (Auto) 0.8 Baso % (Auto) 0.2 Absolute Neuts (auto) 3.3 Absolute Lymphs (auto) 2.03 Nucleated RBC % 0 Sodium 137 Potassium 3.4 L Chloride 105 Carbon Dioxide 27.0 Anion Gap 5 BUN 13 Creatinine 1.23 H Estim Creat Clear Calc 68.58 Est GFR (MDRD) Af Amer 69 Est GFR (MDRD) Non-Af 57 L BUN/Creatinine Ratio 10.6 Glucose 89 Calcium 9.5 Radiography Diagnostic Testing: Clinical Impression(s) from Imaging Studies Venous Duplex 08/11/21 18:49 IMPRESSION: No sonographic evidence of deep venous thrombosis. Electronically Signed: Anthony Richardson DO at 20:20 EST Tel , Service support , Discharge Plan Triage Chief Complaint: Lower Extremity Injury ED Provider: Luis A Lilly Dx/Rx/DC Orders Clinical Impression: Discoloration of skin of foot Instructions: ED Foot Contusion Prescriptions: No Action metoprolol succinate [Toprol XL] 25 mg tablet extended release 24 hr 25 mg PO DAILY Qty: 60 RF: 3 trazodone 50 mg tablet 50 mg PO DAILY RF: 0 fluoxetine 20 mg capsule 20 mg PO DAILY RF: 0 Primary Care Provider: Care Physician,No Primary Referrals: Care Physician,No Primary [Primary Care Provider] - Doctor,Your [STAFF PHYSICIAN] - 3-5 Days Disposition Disposition: Home, Self Care
--- NOTE | 2021-08-11 18:49 | US_ITS ---
INDICATION: undefined -- PAIN EXAMINATION: Ultrasound US Venous Duplex LE Bilat Complete TECHNIQUE: Goetz scale, pulse wave, and color flow Doppler imaging was performed of the lower extremity venous system. The bilateral greater saphenous, common femoral, femoral, and popliteal veins and peroneal veins were interrogated. COMPARISON: None. FINDINGS: There is normal compression, augmentation, and signal throughout the visualized deep lower extremity veins. No mass or fluid collection. Normal-appearing inguinal lymph nodes with fatty lazaro and normal morphology. US/Venous Duplex Imag/Jose A Extrem IMPRESSION: No sonographic evidence of deep venous thrombosis. Electronically Signed: Anthony Richardson DO at 20:20 EST Tel , Service support ,
[2021-08-11 19:21] LABS: Absolute Lymphocyte Count 2.03 X10^3/uL (0.83-4.51); Absolute Neutrophil Count 3.3 X10^3/uL (2.0-7.7); Basophil# 0.01 X10^3/uL; Basophil% 0.2 % (0-1); Eosinophil# 0.05 X10^3/uL; Eosinophils% 0.8 % (0-5); Hematocrit 42.2 % (37-47); Hemoglobin 14.2 g/dL (12.0-15.0); Lymphocyte # 2.03 X10^3/ul (0.83-4.51); Lymphocyte % 34.3 % (19-41); Mean Corp Hgb Conc 33.6 g/dL (32-36); Mean Corpuscular Hgb 31.3 pg (27.0-32.0); Mean Platelet Vol. 9.2 fl (6.2-12.0); Monocyte% 8.4 % (0-10); NRBC Flagged by Analyzer 0 % (0-5); Neutrophil # 3.32 X10^3/uL (2.7-7.7); Neutrophil % 56.1 % (47-70); Platelet Count 240 K/mm3 (150-450); RBC Distribution Width CV 12.6 % (11.6-14.6); RBC Distribution Width SD 43.3 fl (35.1-43.9); Red Blood Count 4.54 M/mm3 (4.2-5.4); White Blood Count 5.9 K/mm3 (4.4-11.0)
[2021-08-11 19:35] LABS: Anion Gap 5 (5-15); BUN 13 mg/dL (7-18); BUN/Creat Ratio 10.6 RATIO (10-20); Calcium,Total 9.5 mg/dL (8.5-10.1); Chloride 105 mmol/L (98-107); Creatinine, Serum 1.23 mg/dL (0.55-1.02); EST Glomerular Filtration Rate 57 mL/min (>60); Est Glom Filt Rate - Afr Amer 69 mL/min (>60); Estimated Creatinine Clearance 68.58 ml/min; Glucose 89 mg/dL (74-106); Potassium 3.4 mmol/L (3.5-5.1); Sodium Level 137 mmol/L (136-145)
[2021-08-11 20:55] VITALS: BP 117/78; PULSE 70; RESP 16
== END 2021-08-11 20:56 | disposition home or self-care (01) ==
PROVIDERS: Emergency Provider Emergency Medicine; Visit Provider Emergency Medicine
DX: M79.671 Pain in right foot (principal); M79.672 Pain in left foot; F12.10 Cannabis abuse, uncomplicated; F17.210 Nicotine dependence, cigarettes, uncomplicated
CPT/HCPCS: 80048; 85025; 93970; 99282

== ENCOUNTER → 2021-11-22 | Outpatient (CLI) | payer MEDICAID, SELFPAY ==
--- NOTE | 2021-11-22 15:23 | MRI_ITS ---
STUDY: MRI LUMBAR SPINE WITH AND WITHOUT CONTRAST REASON FOR EXAM: Female, 25 years old. F/U SARCOMA TECHNIQUE: Standardized fat and water weighted pulse sequences were obtained in the sagittal and axial planes. IV 12mL doatrem was administered for the contrast portion of the examination. COMPARISON: None FINDINGS: T12-L1: Normal endplates. Normal disc height, hydration and morphology. Normal bilateral facet joints. Normal central canal and bilateral lateral recesses. Normal bilateral intervertebral neural foramina. Normal lumbar lordosis. There is no substantial scoliosis. Normal conus medullaris that terminates at the L1-2: Normal endplates. Normal disc height, hydration and morphology. Normal bilateral facet joints. Normal central canal and bilateral lateral recesses. Normal bilateral intervertebral neural foramina. L2-3: Normal endplates. Normal disc height, hydration and morphology. Normal bilateral facet joints. Normal central canal and bilateral lateral recesses. Normal bilateral intervertebral neural foramina. L3-4: Normal endplates. Normal disc height, hydration and morphology. Normal bilateral facet joints. Normal central canal and bilateral lateral recesses. Normal bilateral intervertebral neural foramina. L4-5: Normal endplates. Normal disc height, hydration and morphology. Normal bilateral facet joints. Normal central canal and bilateral lateral recesses. Normal bilateral intervertebral neural foramina. L5-S1 there is a protruding disc at L5-S1. Normal visualized sacral ala. Normal visualized paraspinous soft tissue structures. MRI/Spine Lumbar W/WO Contrast IMPRESSION: There is a protruding disc at L5-S1. Electronically Signed: Titus Monique MD at 3:46 EDT ,
[2021-11-22 15:46] LABS: CREATININE FINGERSTICK 1.2 mg/dL (0.55-1.02); EGFR FINGERSTICK > 60.0000 mL/min (>60)
--- NOTE | 2021-11-22 16:40 | CT_ITS ---
STUDY: CT CHEST WITH CONTRAST INJECTION REASON FOR EXAM: Female, 25 years old. MONITORING SARCOMA RADIATION DOSAGE (If Supplied By Facility): CTDIvol = ( 7.54 ) mGy, DLP = ( 204.49 ) mGycm. Individualized dose optimization techniques were used for this CT.? TECHNIQUE: Multiple axial images of the chest were obtained from the apices to the diaphragm at the demonstration of 100 mL of Isovue-300. Sagittal coronal reformatted images are performed. COMPARISON: September 05, 2020 CT scan chest FINDINGS: The lungs are clear there is no focal consolidation pleural effusion pulmonary edema or pneumothorax. The thyroid gland appears normal. There is no visualized mediastinal or hilar lymphadenopathy. There is a trace amount residual thymus material. There is no visualized filling defects along the course of pulmonary arteries. Heart is of normal size. The aorta demonstrates normal caliber and course in the chest. There is a small focus of irregularity of the anterior aspect of T8 and may represent a small limbus vertebra. This is stable when compared to the prior study. The visualized upper abdomen appears normal. The partially visualized liver is homogeneous. CT/Chest WITH Contrast IMPRESSION: Stable chest, No visualized suspicious mass or bony lesion. Electronically Signed: Trudy Mtz MD at 3:51 EDT Reading Location ID and State: [facility] / [place] Tel , Service support ,
== END | disposition home or self-care (01) ==
LOC: MRI 15:23
PROVIDERS: Referring Provider Internal Medicine Hematology & Oncology; Visit Provider Internal Medicine Hematology & Oncology
DX: C41.9 Malignant neoplasm of bone and articular cartilage, unspecified (principal)
CPT/HCPCS: 71260; 72158; A9575; Q9967; A4216

== ENCOUNTER 2022-03-11 12:45 | Emergency (ER) | payer MEDICAID, SELFPAY ==
[2022-03-11 12:47] VITALS: BP 111/77; PULSE 107; RESP 18; TEMP 36.7; O2SAT 98; BMI 22.4
--- NOTE | 2022-03-11 13:03 | CT_ITS ---
STUDY: CT Abdomen And Pelvis W/O Contrast Injection 03/11/2022 2:23 PM REASON FOR EXAM: Female, 26 years old. ABDOMINAL PAIN flank pain Technologist Notes UMBILICAL ABD PAIN TECHNIQUE: Transaxial images were obtained without oral contrast, and without intravenous contrast. Individualized dose optimization techniques were used for this CT. COMPARISON: 08.18.13 FINDINGS: The visualized lung bases are unremarkable. The visualized portions of the heart are within normal limits. Unremarkable liver. There are multiple gallstones. Unremarkable spleen. Unremarkable pancreas. Unremarkable bilateral adrenal glands. No acute findings of the right kidney. No acute findings of the left kidney. Unremarkable visualized stomach. Unremarkable small intestine. Unremarkable colon. There is non-visualization of the appendix. There are no acute findings of the abdominal aorta. Unremarkable inferior vena cava. Subcentimeter mesenteric lymph nodes. Unremarkable urinary bladder. Normal visualized uterus. There is an umbilical hernia containing fat. There is metallic hardware noted in the left and right hip. CT/Abdomen/Pelvis without Cont IMPRESSION: (NOT LISTED IN ORDER OF SIGNIFICANCE) There are no renal stones. There is no hydronephrosis. There is an umbilical hernia containing fat. There are multiple gallstones. Other findings as above. Electronically Signed: John Brown MD at 14:24 EDT ,
--- NOTE | 2022-03-11 13:04 | EX.ED.DYSGE1 ---
HPI History of Present Illness Chief Complaint: Abd Pain Informant: patient Onset/Context/Timing Onset: Yesterday Context: Sudden Onset Timing: Intermittent Current Severity: Mild Maximum Severity: Severe Narrative Narrative: Patient presents with rather sudden severe onset of right flank/right lower quadrant pain last evening. She states she sat down to urinate earlier today and felt there was something coming out of her. She denies personal history of kidney stone but does have family history. She has not noted any obvious hematuria and did not have dysuria. She also reports family history of ovarian cysts and her last menstrual cycle was 2 weeks ago. She has not had fever or chills. She reports she has not been eating and drinking well and has noted decreased urine output over the past couple weeks. [facility] Medical History Anxiety Depression Muse sarcoma Mental deficiency Suicide attempt (03/2021) Weight loss, non-intentional Home Medications fluoxetine 20 mg capsule 20 mg PO DAILY 08/11/21 [History Last Taken Unknown] trazodone 50 mg tablet 50 mg PO DAILY 08/11/21 [History Last Taken Unknown] metoprolol succinate 25 mg tablet,extended release 24 hr (Toprol XL) 25 mg PO DAILY #90 tabs 08/14/21 [Rx Last Taken Unknown] sulfamethoxazole 800 mg-trimethoprim 160 mg tablet (Bactrim DS) 1 tab PO BID #6 tabs 03/11/22 [Rx Last Taken Unknown] Allergy/AdvReac Type Severity Reaction Status Date / Time acetaminophen [From Vicodin] AdvReac Nausea Verified 03/11/22 12:47 hydrocodone [From Vicodin] AdvReac Nausea Verified 03/11/22 12:47 Family History Aunt Breast cancer Cancer Mother Ovarian cancer Grandmother Ovarian cancer Surgical History History of hip surgery Social History Smoking Status: Current every day smoker tobacco type: cigarettes substance use type: marijuana caffeine: Yes Type: carbonated beverages Number of servings: 5 ROS ROS ED Constitutional Constitutional ED: Denies chills or fever(s) Eyes Eyes: Denies change in vision or discharge from eye(s) ENT ENT ED: Denies discharge from eye(s), rhinorrhea or sore throat Cardiovascular Cardiovascular: Denies chest pain or palpitations Respiratory/Chest Respiratory/Chest: Denies cough or dyspnea Gastrointestinal Gastrointestinal: Reports abdominal pain; Denies diarrhea, nausea or vomiting Genitourinary Genitourinary ED: Denies dysuria Musculoskeletal Musculoskeletal: Denies back pain or extremity pain Integumentary Denies Abrasions or rash Neurologic Neurologic: Denies headache(s) or weakness Psychiatric Psychiatric: Denies anxiety or depression Allergic/Immunologic Allergic/Immunologic ED: Denies lip swelling or urticaria EXAM Physical Exam Const Vital Signs: 03/11/22 12:47 Temperature 98.1 F Temperature Source Temporal Pulse Rate 107 H Respiratory Rate 18 Blood Pressure 111/77 Blood Pressure Mean 88 Pulse Ox 98 Oxygen Delivery Method Room Air Positive well nourished and well developed General Appearance ED: well developed HEENT Reports normocephalic and head/scalp atraumatic Eyes PERRL and EOMs intact bilaterally Neck supple Chest Wall inspection of chest normal and palpation of chest normal Resp normal respiratory effort and clear to auscultation bilaterally Cardio regular rate and regular rhythm GI GI Narrative: Mild suprapubic tenderness. No guarding or rebound. Auscultation: hypoactive bowel sounds Palpation: soft Back/Spine no CVA tenderness Extremity normal to inspection Neuro oriented x3 and no sensory deficits noted Sensorium / Orientation: alert Motor Exam: strength 5/5 throughout Psych mental status grossly normal Skin no rashes or lesions noted MDM MDM MDM Narrative Medical decision making narrative: Patient given Toradol and IV fluids. Lab work, urinalysis, CT flank obtained. Lab Data Attestation: I reviewed the patient's lab results. Labs: Laboratory Results - last 24 hr 03/11/22 03/11/22 03/11/22 13:16 13:16 13:16 WBC 5.6 RBC 4.14 L Hgb 13.0 Hct 39.9 MCV 96.4 MCH 31.4 MCHC 32.6 RDW Std Deviation 44.2 H RDW Coeff of Bulmaro 12.4 Plt Count 190 MPV 9.6 Immature Gran % (Auto) 0.200 Neut % (Auto) 58.6 Lymph % (Auto) 31.5 [place] % (Auto) 7.9 Eos % (Auto) 1.4 Baso % (Auto) 0.4 Absolute Neuts (auto) 3.3 Absolute Lymphs (auto) 1.75 Nucleated RBC % 0 Sodium 137 Potassium 3.6 Chloride 105 Carbon Dioxide 27.0 Anion Gap 5 BUN 11 Creatinine 1.33 H Estim Creat Clear Calc 62.88 Est GFR (MDRD) Af Amer 62 Est GFR (MDRD) Non-Af 52 L BUN/Creatinine Ratio 8.3 L Glucose 90 Calcium 8.8 Serum , Qual NEGATIVE Urine Color Urine Clarity Urine pH Ur Specific [place] Urine Protein Urine Glucose (UA) Urine Ketones Urine Occult Blood Urine Nitrite Urine Bilirubin Urine Urobilinogen Ur Leukocyte Esterase Urine RBC Urine WBC Ur Squamous Epith Cells Urine Bacteria Urine Mucus 03/11/22 14:30 WBC RBC Hgb Hct MCV MCH MCHC RDW Std Deviation RDW Coeff of Bulmaro Plt Count MPV Immature Gran % (Auto) Neut % (Auto) Lymph % (Auto) [place] % (Auto) Eos % (Auto) Baso % (Auto) Absolute Neuts (auto) Absolute Lymphs (auto) Nucleated RBC % Sodium Potassium Chloride Carbon Dioxide Anion Gap BUN Creatinine Estim Creat Clear Calc Est GFR (MDRD) Af Amer Est GFR (MDRD) Non-Af BUN/Creatinine Ratio Glucose Calcium Serum , Qual Urine Color Yellow Urine Clarity Cloudy Urine pH 7.0 Ur Specific [place] 1.010 Urine Protein 100 H Urine Glucose (UA) Normal Urine Ketones 5 H Urine Occult Blood 150 H Urine Nitrite Negative Urine Bilirubin Negative Urine Urobilinogen 1 H Ur Leukocyte Esterase 500 H Urine RBC 10-25 SEEN Urine WBC 50-100 SEEN Ur Squamous Epith Cells 0 SEEN Urine Bacteria 4+ Urine Mucus 0 SEEN Radiography Diagnostic Testing: Clinical Impression(s) from Imaging Studies Abdomen/Pelvis CT 03/11/22 13:03 IMPRESSION: (NOT LISTED IN ORDER OF SIGNIFICANCE) There are no renal stones. There is no hydronephrosis. There is an umbilical hernia containing fat. There are multiple gallstones. Other findings as above. Electronically Signed: John Brown MD at 14:24 EDT , Treatment and Re-Evaluation Narrative: Repeat evaluation patient resting comfortably. CBC and chemistry studies unremarkable. test negative. Urinalysis does show significant infection with 4+ bacteria and 50-[address] flank reveals no evidence of renal stones or hydronephrosis. Multiple gallstones are noted. Patient has no tenderness in the upper abdomen on exam. She will be treated with Bactrim for her UTI. Return instructions are provided. Discharge Plan Triage Chief Complaint: Abd Pain ED Provider: Nancy Ugalde Dx/Rx/DC Orders Clinical Impression: UTI (urinary tract infection) Instructions: ED Cystitis Female Adult Prescriptions: New sulfamethoxazole-trimethoprim [Bactrim DS] 800-160 mg tablet 1 tab PO BID Qty: 6 0RF No Action trazodone 50 mg tablet 50 mg PO DAILY fluoxetine 20 mg capsule 20 mg PO DAILY metoprolol succinate [Toprol XL] 25 mg tablet extended release 24 hr 25 mg PO DAILY Qty: 90 3RF Primary Care Provider: Care Physician,No Primary Referrals: Semaj Olivares DO [Med Staff - [employer]] - As Needed Care Physician,No Primary [Primary Care Provider] - Disposition Disposition: Home, Self Care
[2022-03-11] MEDS: 0.9% Normal Saline 1,000 ML 1000 ML IV (13:14)
[2022-03-11] MEDS: Ketorolac 30 MG/ML Syringe IV (13:14)
[2022-03-11 13:21] LABS: Absolute Lymphocyte Count 1.75 X10^3/uL (0.83-4.51); Absolute Neutrophil Count 3.3 X10^3/uL (2.0-7.7); Basophil# 0.02 X10^3/uL; Basophil% 0.4 % (0-1); Eosinophil# 0.08 X10^3/uL; Eosinophils% 1.4 % (0-5); Hematocrit 39.9 % (37-47); Lymphocyte # 1.75 X10^3/ul (0.83-4.51); Lymphocyte % 31.5 % (19-41); Mean Corp Hgb Conc 32.6 g/dL (32-36); Mean Corpuscular Hgb 31.4 pg (27.0-32.0); Mean Corpuscular Volume 96.4 fL (81-99); Mean Platelet Vol. 9.6 fl (6.2-12.0); Monocyte# 0.44 X10^3/uL; Monocyte% 7.9 % (0-10); NRBC Flagged by Analyzer 0 % (0-5); Neutrophil # 3.26 X10^3/uL (2.7-7.7); Neutrophil % 58.6 % (47-70); Platelet Count 190 K/mm3 (150-450); RBC Distribution Width CV 12.4 % (11.6-14.6); RBC Distribution Width SD 44.2 fl (35.1-43.9); Red Blood Count 4.14 M/mm3 (4.2-5.4); White Blood Count 5.6 K/mm3 (4.4-11.0)
[2022-03-11 13:36] LABS: Anion Gap 5 (5-15); BUN 11 mg/dL (7-18); BUN/Creat Ratio 8.3 RATIO (10-20); Calcium,Total 8.8 mg/dL (8.5-10.1); Chloride 105 mmol/L (98-107); Creatinine, Serum 1.33 mg/dL (0.55-1.02); EST Glomerular Filtration Rate 52 mL/min (>60); Est Glom Filt Rate - Afr Amer 62 mL/min (>60); Estimated Creatinine Clearance 62.88 ml/min; Glucose 90 mg/dL (74-106); Potassium 3.6 mmol/L (3.5-5.1); Sodium Level 137 mmol/L (136-145)
[2022-03-11 13:43] LABS: Internal QC Validated? YES +Cl - CLEAR BKGD; Pregnancy, Serum, hCG Quali. NEGATIVE Negative
[2022-03-11 14:35] LABS: Color, Urine Yellow (Yellow); Glucose, Dipstick Normal (Normal); Ketone-Dipstick 5 mg/dl (Negative); Leukocyte Esterase-Dipstick 500 /ul (Negative); Nitrite-Dipstick Negative (Negative); Occult Blood-Urine 150 /ul (Negative); Protein-Dipstick 100 mg/dl (Negative); Urine Bilirubin Dipstick Negative (Negative); Urine Clarity Cloudy (Clear); Urine Urobilinogen 1 mg/dl (Normal)
[2022-03-11 14:36] LABS: Mucous, Urine 0 SEEN /hpf (<or=2+); Squamous Epithelial Cells - UA 0 SEEN /hpf (5-10)
[2022-03-11] MEDS: 0.9% Normal Saline 1,000 ML 150 ML IV (14:40)
[2022-03-11 14:42] LABS: Bacteria 4+ /hpf (None Seen); Red Blood Cells-Urine 10-25 SEEN /hpf (0-5); White Blood Cells 50-100 SEEN /hpf (0-5)
[2022-03-11] MEDS: Smz/Tmp Ds Tablet 1 TABLET PO (15:02)
[2022-03-11 15:04] VITALS: PULSE 78; RESP 14; TEMP 37.2; O2SAT 100
== END 2022-03-11 15:05 | disposition home or self-care (01) ==
PROVIDERS: Emergency Provider Emergency Medicine; Visit Provider Emergency Medicine
DX: N39.0 Urinary tract infection, site not specified (principal); F41.9 Anxiety disorder, unspecified; F32.A Depression, unspecified; F17.210 Nicotine dependence, cigarettes, uncomplicated; Z79.899 Other long term (current) drug therapy
CPT/HCPCS: 74176; 80048; 81001; 84703; 85025; 96361; 96374; 99284; J7030

== ENCOUNTER 2022-05-09 15:18 | Emergency (ER) | payer MEDICAID, SELFPAY ==
[2022-05-09 15:20] VITALS: BP 121/77; PULSE 105; RESP 16; TEMP 36.1; O2SAT 100; BMI 23.8
--- NOTE | 2022-05-09 15:35 | ED.VIS.FEGU ---
HPI HPI - Female History of Present Illness Chief Complaint: Vag Bld, Preg Informant: patient Pain Pain: Positive for Pelvic Pain Onset: Days Context: Gradual Onset Timing: Waxes and wanes Location: Suprapubic Current Severity: Mild Maximum Severity: Mild Bleeding Issue: Positive for Vaginal bleeding Onset: Days Timing: Intermittent Current Severity: Spotting Narrative Narrative: Patient presents with vaginal spotting and cramping. She believes she is approximately 6 to 8 weeks . She believes her last menstrual cycle was in February. She had 3 positive home test. She was supposed to see her DIRECTOR OF STUDENT AFFAIRS today, but her appointment was bumped back to next week so she presented to the emergency room. She states she has had spotting the past couple days. She is had some intermittent cramping that seems somewhat worse today. [facility] Medical History Anxiety Depression Muse sarcoma Mental deficiency Suicide attempt (03/2021) Weight loss, non-intentional Allergy/AdvReac Type Severity Reaction Status Date / Time hydrocodone [From Vicodin] AdvReac Nausea Verified 05/09/22 15:20 Family History Aunt Breast cancer Cancer Mother Ovarian cancer Grandmother Ovarian cancer Surgical History History of hip surgery Social History Smoking Status: Former smoker substance use type: marijuana caffeine: Yes Type: carbonated beverages Number of servings: 5 ROS ROS ED Constitutional Constitutional ED: Denies chills or fever(s) Eyes Eyes: Denies change in vision or discharge from eye(s) ENT ENT ED: Denies discharge from eye(s), rhinorrhea or sore throat Cardiovascular Cardiovascular: Denies chest pain or palpitations Respiratory/Chest Respiratory/Chest: Denies cough or dyspnea Gastrointestinal Gastrointestinal: Reports abdominal pain; Denies diarrhea, nausea or vomiting Genitourinary Genitourinary ED: Reports urinary frequency; Denies difficulty urinating or dysuria Musculoskeletal Musculoskeletal: Denies back pain or extremity pain Integumentary Denies Abrasions or rash Neurologic Neurologic: Denies headache(s) or weakness Psychiatric Psychiatric: Denies anxiety or depression Allergic/Immunologic Allergic/Immunologic ED: Denies lip swelling or urticaria EXAM Physical Exam Const Vital Signs: 05/09/22 15:20 05/09/22 18:17 Temperature 96.9 F L Temperature Source Temporal Pulse Rate 105 H 88 Respiratory Rate 16 Blood Pressure 121/77 H 97/55 L Blood Pressure Mean 91 69 Pulse Ox 100 100 Oxygen Delivery Method Room Air Room Air Positive well nourished and well developed General Appearance ED: well developed HEENT Reports normocephalic and head/scalp atraumatic Eyes PERRL and EOMs intact bilaterally Neck supple Chest Wall inspection of chest normal and palpation of chest normal Resp normal respiratory effort and clear to auscultation bilaterally Cardio regular rate and regular rhythm GI GI Narrative: Mild suprapubic tenderness to palpation. No guarding or rebound. Palpation: soft Back/Spine no CVA tenderness Extremity normal to inspection Neuro oriented x3 and no sensory deficits noted Sensorium / Orientation: alert Motor Exam: strength 5/5 throughout Psych mental status grossly normal Skin no rashes or lesions noted MDM MDM MDM Narrative Medical decision making narrative: Lab work additionally obtained including blood type and quant. Lab Data Attestation: I reviewed the patient's lab results. Labs: Laboratory Results - last 24 hr 05/09/22 05/09/22 05/09/22 15:45 15:45 15:45 WBC 5.9 RBC 4.15 L Hgb 13.4 Hct 39.0 MCV 94.0 MCH 32.3 H MCHC 34.4 RDW Std Deviation 43.4 RDW Coeff of Bulmaro 12.6 Plt Count 190 MPV 9.0 Immature Gran % (Auto) 0.200 Neut % (Auto) 57.0 Lymph % (Auto) 28.2 [place] % (Auto) 11.9 H Eos % (Auto) 2.4 Baso % (Auto) 0.3 Absolute Neuts (auto) 3.4 Absolute Lymphs (auto) 1.66 Nucleated RBC % 0 HCG, Quant 21324 H Urine Color Urine Clarity Urine pH Ur Specific [place] Urine Protein Urine Glucose (UA) Urine Ketones Urine Occult Blood Urine Nitrite Urine Bilirubin Urine Urobilinogen Ur Leukocyte Esterase Urine RBC Urine WBC Ur Squamous Epith Cells Urine Bacteria Urine Mucus Blood Type A POSITIVE 05/09/22 15:45 WBC RBC Hgb Hct MCV MCH MCHC RDW Std Deviation RDW Coeff of Bulmaro Plt Count MPV Immature Gran % (Auto) Neut % (Auto) Lymph % (Auto) [place] % (Auto) Eos % (Auto) Baso % (Auto) Absolute Neuts (auto) Absolute Lymphs (auto) Nucleated RBC % HCG, Quant Urine Color Straw Urine Clarity Clear Urine pH 6.5 Ur Specific [place] 1.010 Urine Protein 15 H Urine Glucose (UA) 50 H Urine Ketones Negative Urine Occult Blood 150 H Urine Nitrite Negative Urine Bilirubin Negative Urine Urobilinogen Normal Ur Leukocyte Esterase 25 H Urine RBC 5-10 SEEN Urine WBC 0-5 SEEN Ur Squamous Epith Cells 0-5 SEEN Urine Bacteria 1+ Urine Mucus 0 SEEN Blood Type Radiography Diagnostic Testing: Clinical Impression(s) from Imaging Studies Obstetrics Ultrasound 05/09/22 17:10 IMPRESSION: Single live intrauterine . Estimated gestational age is 7 weeks 2 days with CLAUDIA 12/24/2022. Electronically Signed: Tera Bains MD at 18:18 EDT , Treatment and Re-Evaluation Narrative: CBC is unremarkable. Quant is 55,300. Blood type is A positive. Urinalysis reveals 1+ bacteria with 5-10 RBCs and 150 blood. Pelvic ultrasound is performed. This reveals a single live intrauterine with estimated stational age of 7 weeks 2 days. No acute abnormalities noted. heart rate is 154. I discussed with patient that she will receive paperwork for threatened miscarriage. Oftentimes these pregnancies are successful. She is to follow with her DIRECTOR OF STUDENT AFFAIRS next week as scheduled. Discharge Plan Triage Chief Complaint: Vag Bld, Preg ED Provider: Nancy Ugalde Dx/Rx/DC Orders Clinical Impression: Threatened miscarriage Instructions: ED Possible Miscarriage ... Primary Care Provider: Care Physician,No Primary Referrals: Lashawn Mcnair MD [Med Staff - Active Staff] - Keep Cam appointment Care Physician,No Primary [Primary Care Provider] - Disposition Disposition: Home, Self Care
[2022-05-09 16:02] LABS: Mucous, Urine 0 SEEN /hpf (<or=2+)
[2022-05-09 16:04] LABS: Absolute Lymphocyte Count 1.66 X10^3/uL (0.83-4.51); Absolute Neutrophil Count 3.4 X10^3/uL (2.0-7.7); Basophil# 0.02 X10^3/uL; Basophil% 0.3 % (0-1); Eosinophil# 0.14 X10^3/uL; Eosinophils% 2.4 % (0-5); Hemoglobin 13.4 g/dL (12.0-15.0); Lymphocyte # 1.66 X10^3/ul (0.83-4.51); Lymphocyte % 28.2 % (19-41); Mean Corp Hgb Conc 34.4 g/dL (32-36); Mean Corpuscular Hgb 32.3 pg (27.0-32.0); Monocyte% 11.9 % (0-10); NRBC Flagged by Analyzer 0 % (0-5); Neutrophil # 3.35 X10^3/uL (2.7-7.7); Platelet Count 190 K/mm3 (150-450); RBC Distribution Width CV 12.6 % (11.6-14.6); RBC Distribution Width SD 43.4 fl (35.1-43.9); Red Blood Count 4.15 M/mm3 (4.2-5.4); White Blood Count 5.9 K/mm3 (4.4-11.0)
[2022-05-09 16:12] LABS: Color, Urine Straw (Yellow); Glucose, Dipstick 50 mg/dl (Normal); Ketone-Dipstick Negative (Negative); Leukocyte Esterase-Dipstick 25 /ul (Negative); Nitrite-Dipstick Negative (Negative); Occult Blood-Urine 150 /ul (Negative); Protein-Dipstick 15 mg/dl (Negative); Urine Bilirubin Dipstick Negative (Negative); Urine Clarity Clear (Clear); Urine Urobilinogen Normal (Normal); Urine pH 6.5 (5.0 - 8.0)
[2022-05-09 16:27] LABS: Bacteria 1+ /hpf (None Seen); Red Blood Cells-Urine 5-10 SEEN /hpf (0-5); Squamous Epithelial Cells - UA 0-5 SEEN /hpf (5-10); White Blood Cells 0-5 SEEN /hpf (0-5)
[2022-05-09 16:58] LABS: hCG Titer Quant., Serum 55393 mIU/mL (1-3)
--- NOTE | 2022-05-09 17:10 | US_ITS ---
INDICATION: , pain and spotting EXAMINATION: Ultrasound US OB Transvaginal TECHNIQUE: Transvaginal (for optimal evaluation of the adnexa) pelvic ultrasound was performed. Grayscale, spectral waveform, and color flow Doppler evaluation of the adnexa. COMPARISON: None. LMP: [03/27/2022 Beta-hCG: Unknown FINDINGS: UTERUS: 8.1 x 6.2 x 4.6 cm. RIGHT OVARY: 3.8 x 2.4 x 1.7 cm. Normal. LEFT OVARY: 1.9 x 1.3 x 0.8 cm. Normal. FREE FLUID: None. INTRAUTERINE GESTATIONAL SAC: Single. Mean sac diameter 2.3 cm. YOLK SAC: Identified POLE: Identified CRL 1.1 cm. ESTIMATED GESTATION AGE: 7 weeks 2 days. HEART MOTION: 154 bpm. PLACENTA: Not visualized due to age. SUBCHORIONIC HEMORRHAGE: None. AMNIOTIC FLUID: Qualitatively normal. US/Transvaginal w/Preg US IMPRESSION: Single live intrauterine . Estimated gestational age is 7 weeks 2 days with CLAUDIA 12/24/2022. Electronically Signed: Tera Bains MD at 18:18 EDT ,
[2022-05-09 18:17] VITALS: BP 97/55; PULSE 88; O2SAT 100
== END 2022-05-09 18:59 | disposition home or self-care (01) ==
PROVIDERS: Emergency Provider Emergency Medicine; Visit Provider Emergency Medicine
DX: O20.0 Threatened abortion (principal); O26.891 Other specified pregnancy related conditions, first trimester; R10.2 Pelvic and perineal pain; Z87.891 Personal history of nicotine dependence; Z3A.01 Less than 8 weeks gestation of pregnancy
CPT/HCPCS: 76817; 81001; 84702; 85025; 86900; 86901; 99283; A4216

== ENCOUNTER 2022-07-23 14:11 | Emergency (ER) | payer MEDICAID, SELFPAY ==
[2022-07-23 14:12] VITALS: BP 100/71; PULSE 97; RESP 16; TEMP 36.7; O2SAT 99; BMI 25.0
== END 2022-07-23 15:15 | disposition left against medical advice (07) ==
LOC: ED 15:17
DX: Z53.21 Procedure and treatment not carried out due to patient leaving prior to being seen by health care provider (principal)

== ENCOUNTER 2022-07-23 17:40 | Emergency (ER) | payer MEDICAID, SELFPAY ==
[2022-07-23 17:40] VITALS: BP 103/73; PULSE 99; RESP 16; TEMP 36.6; O2SAT 100; BMI 25.2
--- NOTE | 2022-07-23 20:02 | EDS_ITS ---
HPI <DAVID Wesley - Last Filed: 07/23/22 21:34> History of Present Illness Chief Complaint: Dental Narrative Narrative: Presents today with swelling to the right side of the lower jaw that she noticed this morning when she woke up and pain with chewing. She states she does have a history of a dental abscess on the left side but has never had one on the right side. Patient admits to poor dental hygiene and states she has not seen a dentist in several years because she cannot find one that accepts her insurance. She is currently 17 weeks . She denies fever, chills, abdominal pain, nausea, vomiting, and diarrhea. PFSH <DAVID Wesley - Last Filed: 07/23/22 21:34> PFSH Medical History Anxiety Depression Muse sarcoma Mental deficiency Suicide attempt (03/2021) Weight loss, non-intentional Home Medications acetaminophen 325 mg tablet (Pain Relief (acetaminophen)) 650 mg PO Q6H PRN pain 10 days #30 tabs 07/23/22 [Rx Last Taken Unknown] penicillin V potassium 500 mg tablet 500 mg PO 4X/DAY #40 tabs 07/23/22 [Rx Last Taken Unknown] Allergy/AdvReac Type Severity Reaction Status Date / Time hydrocodone [From Vicodin] AdvReac Nausea Verified 07/23/22 17:43 Family History Aunt Breast cancer Cancer Mother Ovarian cancer Grandmother Ovarian cancer Surgical History History of hip surgery Social History Smoking Status: Former smoker substance use type: marijuana caffeine: Yes Type: carbonated beverages Number of servings: 5 ROS <DAVID Wesley - Last Filed: 07/23/22 21:34> ROS ED Constitutional Constitutional ED: Denies chills, fever(s) or sweats Eyes Eyes: Denies blurry vision or change in vision ENT ENT ED: Reports dental pain and facial pain; Denies rhinorrhea or sore throat Cardiovascular Cardiovascular: Denies chest pain, palpitations or racing heartbeat Respiratory/Chest Respiratory/Chest: Denies cough, dyspnea or dyspnea on exertion Gastrointestinal Gastrointestinal: Denies abdominal pain, diarrhea, nausea or vomiting Genitourinary Genitourinary ED: Denies dysuria, hematuria or urinary frequency Musculoskeletal Musculoskeletal: Denies arthralgias, myalgias or neck pain Integumentary Denies abscess, Abrasions or rash Neurologic Neurologic: Denies headache(s), paresthesias or weakness Psychiatric Psychiatric: Denies anxiety, depression or suicidal ideation Endocrine Endocrinology: Denies polydipsia, polyphagia or polyuria EXAM <DAVID Wesley - Last Filed: 07/23/22 21:34> Physical Exam Const Vital Signs: 07/23/22 17:40 07/23/22 21:02 Temperature 98 F Temperature Source Temporal Pulse Rate 99 Respiratory Rate 16 14 Blood Pressure 103/73 Blood Pressure Mean 83 Pulse Ox 100 99 Oxygen Delivery Method Room Air Positive well nourished and well developed General Appearance ED: well developed and NAD HEENT HEENT Narrative: Significant edema to the right lower jaw. Patient has multiple dental caries and poor dentition. No area of fluctuance or signs of abscess. Negative for trauma Mouth ED: Yes lips normal and Yes tongue normal Mouth: lips normal and tongue normal Throat: posterior oropharynx normal Eyes PERRL and EOMs intact bilaterally Neck no lymphadenopathy and supple Chest Wall inspection of chest normal Resp normal respiratory effort and clear to auscultation bilaterally Cardio regular rate, regular rhythm and no murmurs GI non-tender, non-distended and no masses Palpation: soft Extremity normal to inspection Neuro oriented x3, CN's II-XII intact bilaterally, moves all extremities, no focal motor deficits and no sensory deficits noted Sensorium / Orientation: alert Gait (Neuro): normal gait Motor Exam: strength 5/5 throughout Psych mental status grossly normal Skin no rashes or lesions noted and no wounds <Dr. Nancy Ugalde MD - Last Filed: 07/24/22 00:28> Physical Exam Const Vital Signs: 07/23/22 17:40 07/23/22 21:02 Temperature 98 F Temperature Source Temporal Pulse Rate 99 Respiratory Rate 16 14 Blood Pressure 103/73 Blood Pressure Mean 83 Pulse Ox 100 99 Oxygen Delivery Method Room Air MDM <DAVID Wesley - Last Filed: 07/23/22 21:34> MDM MDM Narrative Medical decision making narrative: Patient has no dental abscess. Patient has poor dental hygiene and has multiple dental caries. She has been given a list of dentists that she can follow-up with. She has been given a dose of penicillin and Tylenol here and prescriptions for both. She is afebrile and in no acute distress. She is nontoxic-appearing. Vital signs are stable and within normal limits. I am c omfortable with patient discharging home with antibiotics and following up with a dentist. Patient is comfortable with plan. She has been given return instructions. <Dr. Nancy Ugalde MD - Last Filed: 07/24/22 00:28> [facility] Treatment and Re-Evaluation Narrative: Patient seen and evaluated with CHARLIE. I personally interviewed and examined the patient. I was involved in all aspects of patient's orders, interpretation of results, and treatment. Patient presents with right mandibular swelling and dental pain. Symptoms started today. No fever or chills. Patient is currently . Patient lying in bed no acute distress. Head neck examination reveals mild erythema and edema along the right mandible. No focal area of fluctuance. Intraoral examination reveals multiple dental caries. Mild gum edema. No trismus is noted and no evidence of Epifanio's angina. She speaks with a strong voice and is tolerating secretions well. Heart is regular rate and rhythm without murmur. Lung sounds are clear. Abdomen is soft and nontender. Patient be treated with Pen-Vee K and Tylenol. She is given a dental referral list. Discharge Plan Triage Chief Complaint: Dental ED Midlevel Provider: Rosalba Martinez ED Provider: Nancy Ugalde Dx/Rx/DC Orders Clinical Impression: Infected dental caries Instructions: Dental Abscess Prescriptions: New penicillin V potassium 500 mg tablet 500 mg PO 4X/DAY Qty: 40 0RF acetaminophen [Pain Relief (acetaminophen)] 325 mg tablet 650 mg PO Q6H PRN (Reason: pain) 10 Days Qty: 30 0RF Primary Care Provider: Care Physician,No Primary Referrals: Care Physician,No Primary [Primary Care Provider] - Activity Restrictions/Additional Instructions: Please follow-up with one of the dentists I provided you with. Please return if symptoms worsen. Take antibiotics as prescribed. Disposition Disposition: Home, Self Care Discharge Date/Time: 07/23/22 21:08
[2022-07-23 21:02] VITALS: RESP 14; O2SAT 99
[2022-07-23] MEDS: Acetaminophen 325 MG Tablet 650 MG PO (21:05)
[2022-07-23] MEDS: Penicillin Vk 250 MG Tablet 500 MG PO (21:05)
== END 2022-07-23 21:08 | disposition home or self-care (01) ==
PROVIDERS: Emergency Provider Emergency Medicine; Visit Provider Emergency Medicine
DX: O99.612 Diseases of the digestive system complicating pregnancy, second trimester (principal); O99.322 Drug use complicating pregnancy, second trimester; K02.9 Dental caries, unspecified; F12.90 Cannabis use, unspecified, uncomplicated; Z3A.17 17 weeks gestation of pregnancy; Z87.891 Personal history of nicotine dependence
CPT/HCPCS: 99283

== ENCOUNTER 2022-12-24 23:59 | Inpatient (IN) | payer OTHER, MEDICAID, SELFPAY ==
[2022-12-24 22:19] VITALS: BMI 33.3
[2022-12-24 22:24] VITALS: PULSE 95; O2SAT 98
[2022-12-24 22:27] VITALS: BP 116/67; PULSE 78
[2022-12-24] MEDS: Lactated Ringers 1,000 ML 999 ML IV (23:15)
[2022-12-24 23:38] LABS: Absolute Lymphocyte Count 2.39 X10^3/uL (0.83-4.51); Absolute Neutrophil Count 9.8 X10^3/uL (2.0-7.7); Basophil# 0.03 X10^3/uL; Basophil% 0.2 % (0-1); Eosinophil# 0.14 X10^3/uL; Hematocrit 37.1 % (37-47); Hemoglobin 12.5 g/dL (12.0-15.0); Lymphocyte # 2.39 X10^3/ul (0.83-4.51); Lymphocyte % 17.5 % (19-41); Mean Corp Hgb Conc 33.7 g/dL (32-36); Mean Corpuscular Hgb 31.8 pg (27.0-32.0); Mean Corpuscular Volume 94.4 fL (81-99); Mean Platelet Vol. 10.1 fl (6.2-12.0); Monocyte# 1.19 X10^3/uL; Monocyte% 8.7 % (0-10); NRBC Flagged by Analyzer 0 % (0-5); Neutrophil # 9.77 X10^3/uL (2.7-7.7); Neutrophil % 71.5 % (47-70); Platelet Count 264 K/mm3 (150-450); RBC Distribution Width CV 13.4 % (11.6-14.6); RBC Distribution Width SD 46.3 fl (35.1-43.9); Red Blood Count 3.93 M/mm3 (4.2-5.4); White Blood Count 13.7 K/mm3 (4.4-11.0)
[2022-12-25] VITALS (47 sets, daily range): BP systolic 90–198; BP diastolic 48–133; PULSE 88–171; RESP 17–20; TEMP 36.6–37.3; O2SAT 90–100
[2022-12-25] MEDS: Lactated Ringers 1,000 ML 50 ML IV (00:15)
--- NOTE | 2022-12-25 02:19 | HP.PCM.OB_ITS ---
HPI - General General Date of Admission: 12/24/22 HPI Narrative SHAWANDA VELAZQUEZ, is a 27 F at 39.6 who presents in spontaneous, active labor. Maternal Data Information CLAUDIA Calculator Estimated Delivery Date Method Current WG Current Estimate 12/26/22 Manual 39w 6d PFSH PFSH Medical History (Updated 12/25/22 @ 02:25 by Agatha Torres CNM) Anxiety Depression Muse sarcoma History of illicit drug use Mental deficiency Suicide attempt (03/2021) Weight loss, non-intentional Home Medications acetaminophen 325 mg tablet (Pain Relief (acetaminophen)) 650 mg PO Q6H PRN pain 10 days #30 tabs 07/23/22 [Rx Last Taken Unknown] penicillin V potassium 500 mg tablet 500 mg PO 4X/DAY #40 tabs 07/23/22 [Rx Last Taken Unknown] Allergy/AdvReac Type Severity Reaction Status Date / Time hydrocodone [From Vicodin] AdvReac Nausea Verified 07/23/22 17:43 Family History Aunt Breast cancer Cancer Mother Ovarian cancer Grandmother Ovarian cancer Surgical History History of hip surgery History of surgery Social History Smoking Status: Current some day smoker tobacco type: cigarettes and e- cigarettes substance use type: marijuana caffeine: Yes Type: carbonated beverages Number of servings: 5 History Elective abortions Hx Para 0 Spontaneous abortions Hx # Term Pregnancies Ectopic pregnancies Hx # Pregnancies Multiple births # of living children Visit Details OB Flowsheet Initial Weight: Not Recorded Date -?-?-?-?-?-?-?-?-?-?-?-?- EGA Weight BP Urine Prot -?-?-?-?-?-?-?-?-?-?-?-?- Glucose FHR FuHt Pres Dilation -?-?-?-?-?-?-?-?-?-?-?-?- Effaced St Visit Note 12/24/22 -?-?-?-?-?-?-?-?-?-?-?-?- 39w 5d 212 lb 11.937 oz 116 /67 136/74 103/52 90/54 164/61 159/133 110/50 -?-?-?-?-?-?-?-?-?-?-?-?- -?-?-?-?-?-?-?-?-?-?-?-?- ROS Eyes Eyes: Denies blurry vision, change in vision or spots in vision ENT HEENT: Denies dizziness or headache(s) Cardiovascular Cardiovascular: Denies abdominal pain, chest pain or dyspnea Respiratory/Chest Respiratory/Chest: Denies cough, dyspnea, shortness of breath at rest or shortness of breath with exertion Gastrointestinal Gastrointestinal: Denies abdominal pain, diarrhea or vomiting Genitourinary Genitourinary: Denies change in urinary stream, difficulty urinating or dysuria Musculoskeletal Musculoskeletal: Reports none Integumentary Integumentary: Denies rash Neurologic Neurologic: Denies dizziness, headache(s), memory loss or weakness Psychiatric Psychiatric: Reports none Vital Signs Vital Signs Vital Signs: 12/24/22 22:24 12/24/22 22:24 12/24/22 22:27 Pulse Rate 95 Blood Pressure 116/67 BP Systolic 116 BP Diastolic 67 Pulse Ox 98 12/24/22 22:27 12/25/22 00:49 12/25/22 00:49 Pulse Rate 78 100 Blood Pressure BP Systolic BP Diastolic Pulse Ox 99 12/25/22 00:52 12/25/22 00:52 12/25/22 00:54 Pulse Rate 96 99 Blood Pressure 136/74 H BP Systolic 136 BP Diastolic 74 Pulse Ox 12/25/22 00:54 12/25/22 00:56 12/25/22 00:56 Pulse Rate 92 Blood Pressure BP Systolic BP Diastolic Pulse Ox 100 93 12/25/22 00:59 12/25/22 00:59 12/25/22 01:02 Pulse Rate 95 Blood Pressure 103/52 L BP Systolic 103 BP Diastolic 52 Pulse Ox 99 12/25/22 01:02 12/25/22 01:04 12/25/22 01:04 Pulse Rate 97 105 H Blood Pressure BP Systolic BP Diastolic Pulse Ox 99 12/25/22 01:07 12/25/22 01:07 12/25/22 01:09 Pulse Rate 114 H 112 H Blood Pressure 90/54 L BP Systolic 90 BP Diastolic 54 Pulse Ox 12/25/22 01:09 12/25/22 01:14 12/25/22 01:14 Pulse Rate 119 H Blood Pressure BP Systolic BP Diastolic Pulse Ox 100 95 12/25/22 01:19 12/25/22 01:19 12/25/22 01:24 Pulse Rate 111 H 101 H Blood Pressure BP Systolic BP Diastolic Pulse Ox 97 12/25/22 01:24 12/25/22 01:29 12/25/22 01:29 Pulse Rate 104 H Blood Pressure BP Systolic BP Diastolic Pulse Ox 100 100 12/25/22 01:34 12/25/22 01:34 12/25/22 01:39 Pulse Rate 108 H 98 Blood Pressure BP Systolic BP Diastolic Pulse Ox 100 12/25/22 01:39 12/25/22 01:44 12/25/22 01:44 Pulse Rate 103 H Blood Pressure BP Systolic BP Diastolic Pulse Ox 100 100 12/25/22 01:49 12/25/22 01:49 12/25/22 01:51 Pulse Rate 110 H Blood Pressure 164/61 H BP Systolic 164 BP Diastolic 61 Pulse Ox 100 12/25/22 01:51 12/25/22 02:12 12/25/22 02:12 Pulse Rate 115 H 171 H Blood Pressure 159/133 H BP Systolic 159 BP Diastolic 133 Pulse Ox Weight Weight: 212 lb 11.937 oz Body Mass Index (BMI) 33.3 Physical Exam Const alert, oriented x3 and no apparent distress General Appearance: cooperative Orientation / Consciousness: awake Exam Limitations: no limitations HEENT normocephalic Head and Scalp: normal to inspection Eyes General Eye: normal appearance of both eyes Neck full ROM and no lymphadenopathy Lymph Lymphatic: no lymphadenopathy noted Chest inspection of chest normal Resp normal respiratory effort, normal air movement and clear to auscultation bilaterally Effort and Inspection: able to speak in complete sentences and symmetric chest movement Cardio regular rate and regular rhythm GI normal to inspection, nondistended, normoactive bowel sounds Manual OB Exam: presentation cephalic Back/Spine normal ROM Extremity full ROM and no calf tenderness Skin no rashes or lesions noted General Skin Exam: no breakdown Neuro oriented x3 and CN's II-XII intact bilaterally Psych mental status grossly normal and thought process normal Labs Labs Labs: Blood Type A POSITIVE Antibody Screen Pending Hct 37.1 % (37-47) Hgb 12.5 g/dL (12.0-15.0) Obstetrics US Syphilis Total Ab Pending Assessment & Plan (1) 39 weeks gestation of : (2) Spontaneous onset of labor: (3) Rubella non-immune status, antepartum: (4) Positive GBS test: (5) History of illicit drug use: COMMENT: no use since finding out . Hx of marijuana and methamphetamines PLAN: Plan CE /-1- bulging bag Admit to labor and delivery Routine labs Start IV and run fluids per orders Epidural when indicated Start PCN 5 million units IV x 1 now and continue PCN 3 million units IV every 4 hours until delivery Anticipate Dr. Ayers notified of admission and is collaborating physician
[2022-12-25] MEDS: Ondansetron 4 MG/2 ML Vial IV (02:29)
[2022-12-25 02:51] LABS: Syphilis Antibodies Non-reactive
[2022-12-25 02:51] LABS: Amphetamine Urine VISTA NEGATIVE (<1000 ng/mL); Barbiturate Urine VISTA NEGATIVE (< 200 ng/mL); Benzodiazepine Urine VISTA NEGATIVE (< 200 ng/mL); Cocaine Urine VISTA NEGATIVE (< 300 ng/mL); Ecstacy Urine VISTA NEGATIVE (< 500 ng/mL); Methadone Urine VISTA NEGATIVE (< 300 ng/mL); PCP Urine VISTA NEGATIVE (< 25 ng/mL); THC Urine VISTA POSITIVE (< 50 ng/mL); Vista UDS pH Range 7
[2022-12-25] MEDS: Oxytocin 15 Units/NS 250ml 15 UNITS/250 ML IV.SOLN 83 UNITS IV (03:36)
[2022-12-25] MEDS: Oxytocin 10 UNITS/ML Vial IM (03:36)
--- NOTE | 2022-12-25 03:45 | EX.PCM.OBRPT ---
Assessment & Plan (1) (spontaneous vaginal delivery): (2) Rubella non-immune status, antepartum: (3) Depression: (4) Anxiety: (5) History of illicit drug use: COMMENT: no use since finding out . Hx of marijuana and methamphetamines Maternal Data Information CLAUDIA Calculator Estimated Delivery Date Method Current WG Current Estimate 12/26/22 Manual 39w 6d Gestational age: 39.6 Vaginal Delivery Maternal Presentation Maternal Presentation: Active Labor Type of Induction: Amniotomy (Augmentation) Operative Information Date of Procedure: 12/25/22 Pre-Operative Diagnosis: Term gestation, spontaneous onset active labor Post-Operative Diagnosis: , live female infant Surgery / Procedure Performed: Spontaneous Vaginal Delivery Type of Anesthesia: Epidural Drain: Wing to straight drain (Removed before delivery) Estimated Blood Loss: 250 Time of Delivery: 03:30 Findings Description of Procedure: Called to patient's room for variable decelerations. Patient found to be complete dilation. Provided bedside support with pushing. With maternal effort, head delivered followed immediately by remainder of body without traction. Vigorous female placed on maternal abdomen and attended to by nursing. IV Pitocin started for active management of the third stage of labor. 3 vessel cord clamped and cut by patient's mother. placed skin to skin on patient. Placenta delivered spontaneously and intact. Fundus initially boggy. Manual removal of 3 clots. Fundus easily firming with massage. Pitocin IM given. Vagina and perineum intact. Hemostasis obtained. EBL 250 cc, APGARS 8/9. Patient and infant bonding at this time. Dr. Ayers notified of delivery. Presentation: Vertex Amniotic Membrane Rupture Type: Artificial (Due to decelerations and needing placement of internal monitors) Time of Membrane Rupture: 0200 Amniotic Fluid Description: Clear Placental Delivery Description: Spontaneous Placenta Disposition: [facility] Cord Vessel Description: 3 Vessels Cord Entanglement: None A Gender: Female (1 minute): 8 (5 minute): 9 Delayed Cord Clamping: Yes Post Vaginal Delivery Medications Given After Delivery: IV Pitocin and IM Pitocin Episiotomy Description: None Laceration: None Complication Complications: None
[2022-12-25] MEDS: Acetaminophen 500 MG Tablet PO (04:23)
--- NOTE | 2022-12-25 09:19 | NURSING ---
Patient seems upset after delivery. Her mother left after being upset about not being able to hold baby directly after delivery. Infant skin to skin and mother not paying attention to infant with face completely occluded on chest. Educated on proper handling and feeding of baby. Patient tired and requesting baby be taken to warmer just short on an hour. Then slept through last hour of recovery while brother cared for infant.
[2022-12-25] MEDS: Acetaminophen 500 MG Tablet 1000 MG PO (16:46)
[2022-12-25] MEDS: Etonogestrel 68 MG IMPLANT SC (19:37)
--- NOTE | 2022-12-25 19:41 | PCM.OPRPT ---
Report of Operation Date of Procedure: 12/25/22 Pre-Operative Diagnosis: contraceptive mgmt- Post-Operative Diagnosis: Same Surgery/Procedure Performed:: Nexplanon insertion Surgeon: Lashawn Mcnair Type of Anesthesia: Local Special Medications: 1% lidocaine Specimen's removed: none Description of Procedure: pt identified by name and , consent signed. left arm bent, area cleaned with betadine. 3cc lidocaine injected. Nexplanon inserted without difficulty. pt palpated implant. Steri strips and dressing applied. pt tolerated well. no complications. pt given card, understands it needs to be removed in 5 yrs. Grafts/Implants Used: nexplanon
[2022-12-26] MEDS: Acetaminophen 500 MG Tablet 1000 MG PO (00:23)
[2022-12-26 00:37] VITALS: BP 119/64; PULSE 97; RESP 16; TEMP 36.9; O2SAT 98
[2022-12-26 03:59] VITALS: BP 98/57; PULSE 72; RESP 16; TEMP 36.6; O2SAT 97
[2022-12-26 07:57] VITALS: BP 99/53; PULSE 81; RESP 18; TEMP 36.3; O2SAT 96
--- NOTE | 2022-12-26 08:36 | PN.OBGYN_ITS ---
Subjective Subjective Doing well per patient and nursing staff. Ambulating and taking PO without difficulty. Voiding and passing flatus. Pain controlled. Bottle feeding. Denies headache, visual changes, chest pain, shortness of breath, leg pain or increased bleeding. Lochia normal. Objective Data Objective Data Vital Signs: Vital Signs Temp Pulse Resp BP Pulse Ox O2 Del Method 97.4 F L 81 18 99/53 L 96 Room Air 12/26/22 07:57 12/26/22 07:57 12/26/22 07:57 12/26/22 07:57 12/26/22 07:57 12/26/22 07:57 Oxygen Delivery Method Room Air Weight: 212 lb 11.937 oz Body Mass Index (BMI) 33.3 Intake & Output: Intake and Output for Last 24 Hours 12/24/22 12/25/22 12/26/22 23:59 23:59 23:59 Intake Total 1517.5 / 1517.5 Output Total 1250 / 1250 Balance 267.5 / 267.5 Lab / Micro Data Result Diagrams: 12/24/22 23:15 ROS Constitutional Constitutional: Reports systems reviewed and no addt'l complaints, except as documented; Denies headache(s) Eyes Eyes: Denies acute decrease in peripheral vision, blurry vision or change in vision ENT HEENT: Reports systems reviewed and no addt'l complaints, except as documented Cardiovascular Cardiovascular: Denies chest pain or dizziness Respiratory/Chest Respiratory/Chest: Denies cough, dyspnea, dyspnea on exertion, shortness of breath at rest or shortness of breath with exertion Gastrointestinal Gastrointestinal: Denies abdominal pain, diarrhea, nausea or vomiting Genitourinary Genitourinary: Denies abdominal discomfort Musculoskeletal Musculoskeletal: Denies limited range of motion Integumentary Integumentary: Reports systems reviewed and no addt'l complaints, except as documented Neurologic Neurologic: Reports systems reviewed and no addt'l complaints, except as documented Psychiatric Psychiatric: Reports systems reviewed and no addt'l complaints, except as documented Endocrine Endocrinology: Reports systems reviewed and no addt'l complaints, except as doc umented Hematologic/Lymphatic Hematologic/Lymphatic: Reports systems reviewed and no addt'l complaints, except as documented Allergic/Immunologic Allergic/Immunologic: Reports systems reviewed and no addt'l complaints, except as documented Physical Exam Const alert and oriented x3 General Appearance: cooperative Orientation / Consciousness: awake, oriented to person, oriented to place and oriented to time Exam Limitations: no limitations HEENT normocephalic Head and Scalp: normal to inspection, normocephalic and atraumatic Face and Sinus: normal facial exam Eyes General Eye: normal appearance of both eyes Neck full ROM Chest Chest: symmetrical chest wall rise Resp normal respiratory effort and normal air movement Auscultation: clear to auscultation bilaterally Cardio regular rate, regular rhythm, S1 normal heart sound, S2 normal heart sound, no murmurs, no rub, no gallops and no clicks GI normal to inspection, nondistended, normoactive bowel sounds and non-tender appearance of the vagina normal Bladder / Kidney Exam: no CVA tenderness Back/Spine normal ROM Extremity normal to inspection and full ROM Skin no rashes or lesions noted Neuro oriented x3, CN's II-XII intact bilaterally and moves all extremities Sensorium / Orientation: awake, alert and oriented to person Motor Exam: clonus absent Deep Tendon Reflexes: Rt Patellar (L4): 2+ and Lt Patellar (L4): 2+ Assessment & Plan (1) Contraception management: (2) (spontaneous vaginal delivery): (3) History of illicit drug use: COMMENT: no use since finding out . Hx of marijuana and methamphetamines (4) Rubella non-immune status, antepartum: PLAN: Plan 1) PPD#2 2) Pain management 3) vitals stable 4) D/C home
--- NOTE | 2022-12-26 08:38 | PCM.DC.SUM ---
Providers Date of Admission: 12/24/22 Reason For Visit: VAGINAL DELIVERY Diagnosis Discharge Diagnosis (1) Contraception management: Status: Acute Code(s): Z30.9 - Encounter for contraceptive management, unspecified (2) (spontaneous vaginal delivery): Status: Acute Code(s): O80 - Encounter for full-term uncomplicated delivery (3) History of illicit drug use: Status: Acute Code(s): F19.91 - Other psychoactive substance use, unspecified, in remission (4) Rubella non-immune status, antepartum: Status: Acute Code(s): O09.899 - Supervision of other high risk pregnancies, unspecified trimester; Z28.39 - Other underimmunization status Plan 1) PPD#2 2) Pain management 3) vitals stable 4) D/C home Medications at Discharge Home Medications 1 tab PO/SL DAILY Check with primary doctor 12/25/22 acetaminophen 500 mg tablet 1,000 mg PO Q6H PRN PRN Pain 1-10 Or Fever #0 tabs 12/26/22 naproxen 500 mg tablet 500 mg PO Q8H PRN PRN Pain Score 1-3 #0 tabs 12/26/22 Weight / BMI Weight Weight: 212 lb 11.937 oz Body Mass Index (BMI) 33.3 ABG / Lab / Microbiology Data Result Diagrams: 12/24/22 23:15 Meaningful Use Info Meaningful Use Diagnoses (Choose all that apply): None applicable Discharge Plan Admission Admit Date/Time: 12/24/22 23:59 Primary Reason for Your Visit: Vaginal delivery Attending Provider: Agatha Torres Discharge Orders/Prescriptions Prescriptions: New acetaminophen 500 mg Tablet 1,000 mg PO Q6H PRN PRN (Reason: Pain 1-10 Or Fever) Qty: 0 0RF naproxen 500 mg Tablet 500 mg PO Q8H PRN PRN (Reason: Pain Score 1-3) Qty: 0 0RF Continued 1 tab PO/SL DAILY Disposition Disposition (needs filled in before D/C Order can be placed): Home, Self Care
[2022-12-26 13:19] VITALS: BP 102/53; PULSE 91; RESP 18; TEMP 36.6; O2SAT 96
--- NOTE | 2022-12-26 16:00 | CASEMGMT ---
Social work Labor and delivery unit Called [facility] children services and spoke with Elodia in the intake department. Referral given to substance exposed infant in utero as evidenced by MOB's positive drug screen at delivery and verbal admission of marijuana use in . Brief maternal and infant history is provided including maternal mental health history, and IEP/disability related to learning disability. Children services made aware of likely discharge. Received phone call from Elodia reports spoke with supervisory forester and okay to discharge MOB and infant. Children services will be following up with family in the community. Plan: MOB and infant will discharge home. Refer to prior social work documentation this date for details of plan and resources provided. -NETTA Dale, HOME HEALTH TRAVEL PT *This note was generated with [employer] dictation software. It may contain incorrect words, spelling, and punctuation that were not noted in review of the chart prior to signing*
--- NOTE | 2022-12-26 16:00 | CASEMGMT ---
Social Work Assessment Labor and Delivery Unit Patient Address: [address] [place] [id number] Phone number: [phone] Date of Referral: 12/25/2022 Time of Referral: [phone] Referred By: Agatha Torres CNM Date of Intervention: 12/26/2022 Time of Intervention: Approximately 1600 Reason for Referral: Maternal history of anxiety, bipolar, marijuana, and probation during History obtained from: Medical records and mother of baby (MOB) Carlie Delcid Household composition: MOB reports to currently reside with her mother and plans to bring to this home. MOB reports home situation is safe and adequate. Patient's parent/guardian status: MOB is a 27-year-old single female, involved with the father of baby (FOB) Marc Etienne (06/06/1982). MOB reports has been involved with the FOB for about a year and denies any type of abuse, control or intimidation. Patient states he took me off the street. Infant is the eighth child for the FOB in the first child for MOB. Infant is to be named to Margaret Etienne, born 12/[birth year]20[birth year]. Medical History: MOB is 1, para 0 now 1 after delivering the infant. care reportedly good. Maternal history of cancer as minor. delivered weighing 327 5 g. Apgars 8 and 9 at 1 and 5 minutes of life respectively. MOB be plans to use Dr. Bradshaw for pediatrics. Educational Status: MOB reports graduation from the 12th grade and did have an IEP in school for reading. Financial Status: MOB reports income from Social Security disability/SSI receiving $900 a month. MOB believes disability is from learning disability and from childhood cancer. MOB's mother is also on disability in between the 2 incomes this is how bills are paid. Supplies: MOB reports to have necessary supplies for the infant including formula, bottles, crib, car seat, clothing, diapers and wipes. Childcare/Caregiver(s): MOB plans to be the primary caregiver along with assistance from her mother. Transportation: MOB's mother helps with transportation. Programs/Agencies Involved: MOB reports to have food and medical through job and family services. Active with WIC. Agrees to help me grow referral. Reports to use food pantries. Children Services/Legal Issues: MOB reports children services involvement as a minor. Currently on probation. Behavioral Health Issues: Mental Health History: MOB reports history of depression, anxiety and bipolar disorder. History of suicidal ideations in April 2022. MOB indicates suicidal ideations surrounded around MOB's drug use. MOB does reportedly have a history of a suicide attempt in 2020 with a psychiatric hospitalization. Denies any thoughts of suicide, planning or intent during this . Does endorse an increase of anxiety during this . Substance Use History: MOB reports daily marijuana usage in the past, but during the was here and there using a dab pen to help with appetite. MOB admits to history of methamphetamine use with last usage on April 28, 2022. Reports ceased use upon realization of . Chart indicates history of fentanyl and heroin use but denies any during this . Positive for tobacco use. Denies any alcohol use during . Drug Screens: Maternal drug screen positive on 12/24/2022 for marijuana. 's urine is negative. Family/Social Stressors: Social determinants of health screening triggered sometimes food and transportation can be a stress for MOB. MOB indicated housing is sometimes a concern over the last year, but that has an apartment feels home situation is safe and adequate. Reports prior to current apartment had been living in a hotel. Maternal substance use history not in current treatment. Support Systems: MOB reports her mother is a strong support system. Additional support from the MOB's brother and [id number]. Depression/Shaken Baby/Safe Sleeping: Reviewed and educated to mood and anxiety disorders, risk factors, and importance of seeking out help and assistance should symptoms arise. Reviewed and educated shaken baby prevention and safe sleeping. Literature given on all topics for home-going. ASSESSMENT: Met with MOB in room, introduced to self and social work role. MOB cooperative and willing to speak with psych social worker. Social determinants of health screening completed MOB reports to have necessary supplies to care for the and to have stable housing at this point. MOB reports her mother will be at the house as well, to help with care of the infant. Educated MOB to requirement to notify children services of infant exposure to substances in utero. Offered MOB opportunity to ask questions. MOB indicates understanding. MOB denies any additional concerns. Emotional support and encouragement provided, MOB reports to feel the baby is a blessing. MOB reports to feel connected with the baby. MOB agrees to help me grow referral. [place] resources provided on transportation and food pantry's/meal served. [facility] resource list provided. Information shaken baby and safe sleeping. Information on mood and anxiety disorders provided Safe plan of care for related to substance use: Abstain from any future drug use including marijuana. MOB reports understanding that breast-feeding is not indicated with marijuana use. Reports should MOB use would not use around the infant, would have a sober person to help with the infant. PLAN: MOB and will discharge home with support from MOB's mother. Resource information for home-going provided. To help me grow referral to be made and children services. -PHILLIP Dale, LUCA *This note was generated with [employer] dictation software. It may contain incorrect words, spelling, and punctuation that were not noted in review of the chart prior to signing*
[2022-12-26 16:56] VITALS: BP 114/62; PULSE 93; RESP 18; TEMP 36.7; O2SAT 97
--- NOTE | 2023-01-11 09:25 | CASEMGMT ---
Social work Labor and delivery unit Spoke with Tatiana Monzon, intake bench press operator for [facility] ([phone]) and reported 's positive meconium drug screen. [facility] continues to be involved with this family. MOB and infant had previously been discharged home. -NETTA Dale, INSIDE SALES TERRITORY MANAGER *This note was generated with [employer] dictation software. It may contain incorrect words, spelling, and punctuation that were not noted in review of the chart prior to signing*
--- NOTE | 2023-01-15 18:24 | CASEMGMT ---
Social Work Labor and Delivery unit Help me grow referral submitted through the [facility] assisted care web-based referral system. No other services requested or indicated. -NETTA Dale, BRANDING SPECIALIST. *This note was generated with [employer] dictation software. It may contain incorrect words, spelling, and punctuation that were not noted in review of the chart prior to signing*
== END 2022-12-26 17:34 | disposition home or self-care (01) | DRG 560 ==
LOC: WPOUT 12-25 → WP 12-25
PROVIDERS: Admitting Provider Advanced Practice Midwife; Referring Provider Advanced Practice Midwife; Visit Provider Advanced Practice Midwife
DX: O99.824 Streptococcus B carrier state complicating childbirth (principal); Z37.0 Single live birth; F17.210 Nicotine dependence, cigarettes, uncomplicated; F17.290 Nicotine dependence, other tobacco product, uncomplicated; O76 Abnormality in fetal heart rate and rhythm complicating labor and delivery; O99.334 Smoking (tobacco) complicating childbirth; O99.324 Drug use complicating childbirth; F19.91 Other psychoactive substance use, unspecified, in remission; Z3A.39 39 weeks gestation of pregnancy
CPT/HCPCS: 59025; 59050; 80307; 85025; 86780; 86850; 86900; 86901; 99221; J7120; G0378; J2405

== ENCOUNTER 2023-02-06 16:39 | Emergency (ER) | payer BC, MEDICAID, SELFPAY ==
[2023-02-06 16:40] VITALS: BP 104/70; PULSE 83; RESP 16; TEMP 36.6; O2SAT 99; BMI 27.8
--- NOTE | 2023-02-06 17:22 | EX.ED.GENINJ ---
HPI History of Present Illness Chief Complaint: Chest Other Detail of Chief Complaint: Left rib injury Informant: patient Onset/Context/Timing Onset: Days Narrative Narrative: Patient presents 4 days after a fall down 4 steps. She hit her left ribs. Today she has noted increased pain and some shortness of breath. She denies any other injury from the fall. [facility] Medical History Anxiety Depression Muse sarcoma History of illicit drug use Mental deficiency Suicide attempt (03/2021) Weight loss, non-intentional Home Medications 1 tab PO/SL DAILY Check with primary doctor 12/25/22 [History Last Taken 12/24/22] acetaminophen 500 mg tablet 1,000 mg (2 x 500 mg) PO Q6H PRN PRN Pain 1-10 Or Fever #0 tabs 12/26/22 [Rx Last Taken Unknown] naproxen 500 mg tablet 500 mg PO Q8H PRN PRN Pain Score 1-3 #0 tabs 12/26/22 [Rx Last Taken Unknown] naproxen 500 mg tablet (Naprosyn) 500 mg PO BID PRN pain #20 tabs 02/06/23 [Rx Last Taken Unknown] Allergy/AdvReac Type Severity Reaction Status Date / Time No Known Allergies Allergy Verified 02/06/23 16:40 Family History Aunt Breast cancer Cancer Mother Ovarian cancer Grandmother Ovarian cancer Surgical History History of hip surgery History of surgery Social History Smoking Status: Current some day smoker tobacco type: cigarettes and e-cigarettes substance use type: marijuana caffeine: Yes Type: carbonated beverages Number of servings: 5 ROS ROS ED Constitutional Constitutional ED: Denies chills or fever(s) Eyes Eyes: Denies change in vision or discharge from eye(s) ENT ENT ED: Denies discharge from eye(s), rhinorrhea or sore throat Cardiovascular Cardiovascular: Reports chest pain; Denies palpitations Respiratory/Chest Respiratory/Chest: Reports dyspnea; Denies cough Gastrointestinal Gastrointestinal: Denies abdominal pain, nausea or vomiting Genitourinary Genitourinary ED: Denies difficulty urinating or dysuria Musculoskeletal Musculoskeletal: Denies back pain or extremity pain Integumentary Denies Abrasions or rash Neurologic Neurologic: Denies headache(s) or weakness Psychiatric Psychiatric: Denies anxiety or depression Allergic/Immunologic Allergic/Immunologic ED: Denies lip swelling or urticaria EXAM Physical Exam Const Vital Signs: 02/06/23 16:40 Temperature 98 F Temperature Source Temporal Pulse Rate 83 Respiratory Rate 16 Blood Pressure 104/70 Blood Pressure Mean 81 Pulse Ox 99 Oxygen Delivery Method Room Air Positive well nourished and well developed General Appearance ED: well developed HEENT atraumatic Eyes PERRL and EOMs intact bilaterally Chest Wall inspection of chest normal and palpation of chest normal Resp normal respiratory effort and clear to auscultation bilaterally Resp Narrative: No reproducible chest wall tenderness. Cardio regular rhythm Rate: regular rate GI normal to inspection, nondistended, normoactive bowel sounds Back/Spine normal to inspection Extremity normal to inspection Neuro oriented x3 and moves all extremities Skin no rashes or lesions noted MDM MDM MDM Narrative Medical decision making narrative: Rib series with chest x-ray obtained to evaluate for fracture, pneumothorax. Treatment and Re-Evaluation Narrative: Rib series with chest x-ray per my interpretation feels no obvious rib fracture or pneumothorax. Test results are discussed with the patient. She will be given a prescription for naproxen. Return instructions given. Discharge Plan Triage Chief Complaint: Chest Other ED Provider: Nancy Ugalde Dx/Rx/DC Orders Clinical Impression: Chest wall contusion Instructions: ED Chest Wall Contusion Prescriptions: New naproxen [Naprosyn] 500 mg tablet 500 mg PO BID PRN (Reason: pain) Qty: 20 0RF No Action 1 tab PO/SL DAILY acetaminophen 500 mg Tablet 1,000 mg PO Q6H PRN PRN (Reason: Pain 1-10 Or Fever) Qty: 0 0RF naproxen 500 mg Tablet 500 mg PO Q8H PRN PRN (Reason: Pain Score 1-3) Qty: 0 0RF Primary Care Provider: Care Physician,No Primary Referrals: Semaj Olivares DO [Med Staff - [employer]] - As Needed Care Physician,No Primary [Primary Care Provider] - Disposition Disposition: Home, Self Care
--- NOTE | 2023-02-06 17:32 | RAD_ITS ---
EXAM: XR LEFT RIBS AND AP CHEST, 3 OR MORE VIEWS CLINICAL INDICATION: injury TECHNIQUE: Frontal and oblique views of the left ribs and frontal view of the chest. COMPARISON: 01.09.21 FINDINGS: LUNGS AND PLEURAL SPACES: Unremarkable. No consolidation or edema. No pneumothorax. No effusion. HEART: Unremarkable. Cardiac silhouette not enlarged. MEDIASTINUM: Central airways and mediastinal contour are unremarkable. BONES/JOINTS: Unremarkable. No evidence of displaced rib fractures. RAD/Ribs Uni Min 3V w/PA Chest IMPRESSION: Negative chest and left ribs series. Electronically Signed: John Brown MD at 18:15 EDT ,
== END 2023-02-06 18:16 | disposition home or self-care (01) ==
PROVIDERS: Emergency Provider Emergency Medicine; Visit Provider Emergency Medicine
DX: S20.20XA Contusion of thorax, unspecified, initial encounter (principal); F17.210 Nicotine dependence, cigarettes, uncomplicated; F17.290 Nicotine dependence, other tobacco product, uncomplicated; W10.9XXA Fall (on) (from) unspecified stairs and steps, initial encounter
CPT/HCPCS: 71101; 99282

== ENCOUNTER → 2023-10-09 | Outpatient (CLI) | payer MEDICAID, SELFPAY ==
[2023-10-09 12:30] LABS: Absolute Lymphocyte Count 2.08 X10^3/uL (0.83-4.51); Absolute Neutrophil Count 5.8 X10^3/uL (2.0-7.7); Basophil# 0.02 X10^3/uL; Basophil% 0.2 % (0-1); Eosinophil# 0.08 X10^3/uL; Eosinophils% 0.9 % (0-5); Hematocrit 42.5 % (37-47); Hemoglobin 13.8 g/dL (12.0-15.0); Lymphocyte # 2.08 X10^3/ul (0.83-4.51); Lymphocyte % 23.8 % (19-41); Mean Corp Hgb Conc 32.5 g/dL (32-36); Mean Corpuscular Hgb 30.1 pg (27.0-32.0); Mean Corpuscular Volume 92.6 fL (81-99); Mean Platelet Vol. 9.5 fl (6.2-12.0); Monocyte# 0.77 X10^3/uL; Monocyte% 8.8 % (0-10); NRBC Flagged by Analyzer 0 % (0-5); Neutrophil # 5.75 X10^3/uL (2.7-7.7); Platelet Count 265 K/mm3 (150-450); RBC Distribution Width CV 12.8 % (11.6-14.6); RBC Distribution Width SD 43.5 fl (35.1-43.9); Red Blood Count 4.59 M/mm3 (4.2-5.4); White Blood Count 8.7 K/mm3 (4.4-11.0)
[2023-10-09 13:09] LABS: ALB/GLOB Ratio 0.8 RATIO (0.9-2.4); AST(SGOT) 11 U/L (15-37); Alanine Aminotransfer ALT/SGPT 20 U/L (13-56); Alkaline Phosphatase 88 U/L (45-117); Anion Gap 4 (5-15); BUN 22 mg/dL (7-18); BUN/Creat Ratio 15.4 RATIO (10-20); Calcium,Total 9.4 mg/dL (8.5-10.1); Chloride 108 mmol/L (98-107); Creatinine, Serum 1.43 mg/dL (0.55-1.02); EST Glomerular Filtration Rate 47 mL/min (>60); Est Glom Filt Rate - Afr Amer 57 mL/min (>60); Globulin 4.8 g/dL (2.2-4.2); Glucose 108 mg/dL (74-106); Potassium 3.7 mmol/L (3.5-5.1); Protein, Total 8.8 g/dL (6.4-8.2); Sodium Level 139 mmol/L (136-145)
== END | disposition home or self-care (01) ==
PROVIDERS: Referring Provider Internal Medicine Hematology & Oncology; Visit Provider Internal Medicine Hematology & Oncology
DX: C41.9 Malignant neoplasm of bone and articular cartilage, unspecified (principal)
CPT/HCPCS: 36415; 80053; 85025

== ENCOUNTER → 2024-06-29 | Outpatient (CLI) | payer MEDICAID, SELFPAY | END | disposition home or self-care (01) | LOC: MRI 12:56 | PROVIDERS: Referring Provider Internal Medicine Hematology & Oncology; Visit Provider Internal Medicine Hematology & Oncology | DX: C41.9 Malignant neoplasm of bone and articular cartilage, unspecified (principal) ==